=== PATIENT | male | born 1945 | race Caucasian/White ===

== ENCOUNTER 2016-05-22 18:49 | Emergency (ER) | payer MEDICARE, OTHER ==
[~2016-05-22] VITALS: Ht 160 cm; Wt 76.0 kg
[~2016-05-22 18:49] MED LIST: ACET500C5 PO; AMLO5TAB4 PO; ASPI-664 PO; ATEN50TA PO; ATOR20TA38 PO; BEN25 PO; BENA5TAB2 PO; CHOL100062 PO; CLOP75TA27 PO; DOXA2TAB PO; INSU100C SC; MONT10TA21 PO
[2016-05-22 18:54] VITALS: Ht 160 cm; Wt 76.0 kg
[2016-05-22] MEDS ORDERED: SODIUM CHLORIDE 0.9% 1L BAG IV* STA (19:07)
[2016-05-22] MEDS ORDERED: ACETAMINOPHEN 325 MG TAB PO STA (19:07)
[2016-05-22 19:46] LABS: ADD SCAN DIFF NO
[2016-05-22 19:49] LABS: ABNORMAL IP MESSAGE 1; HEMATOCRIT 34.6 % (42.0-52.0); MEAN CORPUSCULAR HEMOGLOBIN 32.9 pg (29.0-33.0); MEAN CORPUSCULAR HGB CONC 31.8 g/dl (32.0-37.0); MEAN CORPUSCULAR VOLUME 103.6 fl (82.0-101.0); MEAN PLATELET VOLUME 10.9 fl (7.4-10.4); PLATELET COUNT 491 10^3/UL (140-415); RED BLOOD COUNT 3.34 10^6/ul (4.70-6.10); RED CELL DISTRIBUTION WIDTH 17.1 % (11.5-14.5); WHITE BLOOD COUNT 6.8 10^3/ul (4.8-10.8)
[2016-05-22 19:51] LABS: ADD UMIC YES; URINE BILIRUBIN (Dip) NEGATIVE (NEGATIVE); URINE BLOOD (Dip) TRACE (NEGATIVE); URINE COLOR LT. YELLOW (YELLOW); URINE KETONES (Dip) NEGATIVE (NEGATIVE); URINE LEUKOCYTE ESTERASE (Dip) NEGATIVE (NEGATIVE); URINE NITRITE (Dip) NEGATIVE (NEGATIVE); URINE TOTAL PROTEIN (Dip) 4+ (NEGATIVE); URINE UROBILINOGEN (Dip) 0.2 E.U./dL (0.1-1.0)
[2016-05-22 19:57] LABS: ALBUMIN 3.6 g/dl (3.3-4.9); CHLORIDE 100 mmol/L (97-110)
[2016-05-22 19:58] LABS: POTASSIUM 4.4 mmol/L (3.5-5.1); SODIUM 135 mmol/L (135-144)
[2016-05-22 20:00] LABS: ALANINE AMINOTRANSFERASE 29 IU/L (13-69); ALBUMIN/GLOBULIN RATIO 0.92; ALKALINE PHOSPHATASE 89 IU/L (42-121); ANION GAP 17 (8-16); ASPARTATE AMINO TRANSFERASE 41 IU/L (15-46); BILIRUBIN,INDIRECT 0.2 mg/dl (0-1.1); BILIRUBIN,TOTAL 0.2 mg/dl (0.2-1.3); BLOOD UREA NITROGEN 28 mg/dl (7-20); CARBON DIOXIDE 22 mmol/L (21-31); CREATININE 2.83 mg/dl (0.61-1.24); GLUCOSE 192 mg/dl (70-220); TOTAL PROTEIN 7.5 g/dl (6.1-8.1)
[2016-05-22 20:01] LABS: CALCIUM 8.6 mg/dl (8.4-10.2); INR 1.09; PROTIME 14.1 Sec (12.2-14.2); PT RATIO 1.1
[2016-05-22 20:02] LABS: PARTIAL THROMBOPLASTIN TIME 42.1 Sec (25.0-35.0)
[2016-05-22 20:08] LABS: BACTERIA,URINE FEW; URINE RBCS 0-2 /HPF (0)
[2016-05-22 20:24] VITALS: TEMP 98.7
[2016-05-22 20:26] LABS: TROPONIN-I < 0.012 ng/ml (0.00-0.12)
[2016-05-22 20:28] LABS: ANISOCYTOSIS 1+; EOSINOPHILS # 0.2 10^3/ul (0.0-0.5); HYPOCHROMASIA 1+; LYMPHOCYTES # 0.4 10^3/ul (0.8-2.9); MONOCYTE # 0.3 10^3/ul (0.3-0.9); NEUTROPHIL # 5.7 10^3/ul (1.6-7.5)
[2016-05-22] MEDS ORDERED: ACET500C5 PO (20:28)
[2016-05-22] MEDS ORDERED: OSLT75C PO (20:28)
[2016-05-22 20:29] LABS: PLATELET ESTIMATE PLT APPEAR INCREASED
[2016-05-22] MEDS ORDERED: OSELTAMIVIR 75 MG CAP PO ONE (20:30)
--- NOTE | 2016-05-22 20:30 | RADRPT ---
PROCEDURE: XR Chest. CLINICAL INDICATION: Chest pain. TECHNIQUE: Single frontal view. COMPARISON: 02/15/2015. FINDINGS: There is a density measuring approximately 2.3 x 2.5 cm in the left upper lobe laterally with adjace nt atelectasis. The lungs are otherwise clear. The heart size is normal. There is no pleural effusion. There is no pneumothorax. IMPRESSION: 1. Density in the left upper lobe laterally. Correlation with CT scan of the chest is advised. 2. Mild left upper lobe atelectasis. 3. Otherwise normal chest x-ray. RPTAT: QQ .Patrice Gil MD, MD Date Time Electronically viewed and signed by .Patrice Gil MD, MD on 05/22/2016 20:30 .R/
--- NOTE | 2016-05-22 20:32 | ERD ---
ER Documentation Chief Complaint Date/Time DATE: 05/22/16 TIME: 20:30 Chief Complaint Flu symptom HPI 71-year-old male presents with fever and body aches for the last 1 day. Denies cough, sore throat, vomiting. He has some mild generalized abdominal pain but body aches as well. He possibly has some dysuria. He has a history of prostate cancer. Denies any neck stiffness or rashes or sick contacts. ROS All systems reviewed and are negative except as per history of present illness. Medications Home Meds Active Scripts Oseltamivir Phosphate* (Tamiflu*) 75 Mg Capsule, 75 MG PO BID for 5 Days, CAP Prov:ALMAZ CUEVA MD 05/22/16 Acetaminophen* (Tylophen*) 500 Mg Capsule, 1 CAP PO Q6H Y for PAIN AND OR ELEVATED TEMP, #20 CAP Prov:ALMAZ CUEVA MD 05/22/16 Acetaminophen* (Tylophen*) 500 Mg Capsule, 1 CAP PO Q6H Y for PAIN AND OR ELEVATED TEMP, #16 CAP Prov:ALMAZ CUEVA MD 06/07/15 Diphenhydramine Hcl* (Benadryl*) 25 Mg Cap, 25 MG PO Q6, #14 CAP Prov:ALMAZ CUEVA MD 06/07/15 Clopidogrel Bisulfate (Clopidogrel) 75 Mg Tab, 75 MG PO DAILY for 30 Days, TAB 3 Refills Prov:ROBERTO THORNE MD 02/16/15 Atorvastatin Calcium* (Atorvastatin Calcium*) 20 Mg Tab, 80 MG PO DAILY@21 for 30 Days, TAB Prov:ROBERTO THORNE MD 02/16/15 Aspirin* (Aspirin* EC) 81 Mg Tablet.dr, 81 MG PO DAILY for 30 Days, 3 Refills Prov:ROBERTO THORNE MD 02/16/15 Reported Medications Cholecalciferol* (Vitamin D3*) 1,000 Unit Tablet, 1000 UNIT PO DAILY, TAB 02/14/15 Insulin Lispro (Humalog) 100 U/Ml Cartridge, 0 SC SLIDING SCALE AC, EA 02/14/15 Amlodipine Besylate* (Norvasc*) 5 Mg Tablet, 5 MG PO DAILY, TAB 02/14/15 Benazepril Hcl* (Benazepril Hcl*) 5 Mg Tablet, 5 MG PO DAILY, TAB 10/05/14 Doxazosin Mesylate* (Doxazosin Mesylate*) 2 Mg Tablet, 2 MG PO HS, TAB HOLD RX PER 10/05/14 Atenolol* (Atenolol*) 50 Mg Tablet, 50 MG PO DAILY 11/30/11 Montelukast Sodium* (Singulair*) 10 Mg Tablet, 10 MG PO DAILY 11/30/11 Allergies Allergies: Coded Allergies: No Known Allergy (Unverified , 02/15/15) PMhx/Soc History of Surgery: Yes (CHOLECYSTECTOMY, VENTRAL HERNIA REPAIR) Anesthesia Reaction: No Hx Neurological Disorder: No Hx Respiratory Disorders: No Hx Cardiac Disorders: Yes (STENT PLACED, HTN) Hx Psychiatric Problems: No Hx Miscellaneous Medical Probl: Yes (PROSTATE CANCER, DM) Hx Alcohol Use: No Hx Substance Use: No Hx Tobacco Use: No Smoking Status: Never smoker Physical Exam Vitals Vital Signs Date Time Temp Pulse Resp B/P Pulse Ox O2 Delivery O2 Flow Rate FiO2 05/22/16 20:24 98.7 88 16 152/73 95 Room Air 05/22/16 18:54 101.7 105 20 170/84 97 Physical Exam Const: [] Alert, no apparent distress. Head: Atraumatic Eyes: Normal Conjunctiva ENT: Normal External Ears, Nose and Mouth. Neck: Full range of motion..~ No meningismus. Resp: Clear to auscultation bilaterally Cardio: Regular rate and rhythm, no murmurs Abd: Soft, non tender, non distended. Normal bowel sounds Skin: No petechiae or rashes Back: No midline or flank tenderness Ext: No cyanosis, or edema Neur: Awake and alert Psych: Normal Mood and Affect Result Diagram: 05/22/16192405/22/161924 Results 24 hrs Laboratory Tests Test 05/22/16 19:25 White Blood Count 6.810^3/ul Red Blood Count 3.3410^6/ul Hemoglobin 11.0g/dl Hematocrit 34.6% Mean Corpuscular Volume 103.6fl Mean Corpuscular Hemoglobin 32.9pg Mean Corpuscular Hemoglobin Concent 31.8g/dl Red Cell Distribution Width 17.1% Platelet Count 45682^3/UL Mean Platelet Volume 10.9fl Neutrophils % 84.0% Band Neutrophils % 2.0% Lymphocytes % 6.0% Monocytes % 5.0% Eosinophils % 3.0% Neutrophils # 5.710^3/ul Lymphocytes # 0.410^3/ul Monocytes # 0.310^3/ul Eosinophils # 0.210^3/ul Platelet Estimate PLT APPEAR INCREASED Large Platelets FEW Giant Platelets FEW Hypochromasia 1+ Anisocytosis 1+ Macrocytosis 1+ Prothrombin Time 14.1Sec Prothrombin Time Ratio 1.1 INR International Normalized Ratio 1.09 Activated Partial Thromboplast Time 42.1Sec Urine Color LT. YELLOW Urine Clarity CLEAR Urine pH 6.0 Urine Specific [place] 1.020 Urine Ketones NEGATIVE Urine Nitrite NEGATIVE Urine Bilirubin NEGATIVE Urine Urobilinogen 0.2 E.U./dL Urine Leukocyte Esterase NEGATIVE Urine Microscopic RBC 0-2/HPF Urine Microscopic WBC 0-2/HPF Urine Epithelial Cells OCCASIONAL Urine Bacteria FEW Urine Hyaline Casts FEW Urine Hemoglobin TRACE Urine Glucose 0.1%% Urine Total Protein 4+ Sodium Level 135mmol/L Potassium Level 4.4mmol/L Chloride Level 100mmol/L Carbon Dioxide Level 22mmol/L Anion Gap 17 Blood Urea Nitrogen 28mg/dl Creatinine 2.83mg/dl Glucose Level 192mg/dl Lactic Acid Level 1.7mmol/L Calcium Level 8.6mg/dl Total Bilirubin 0.2mg/dl Direct Bilirubin 0.00mg/dl Indirect Bilirubin 0.2mg/dl Aspartate Amino Transf (AST/SGOT) 41IU/L Alanine Aminotransferase (ALT/SGPT) 29IU/L Alkaline Phosphatase 89IU/L Troponin I < 0.012ng/ml Total Protein 7.5g/dl Albumin 3.6g/dl Globulin 3.90g/dl Albumin/Globulin Ratio 0.92 Current Medications Medications (Trade) Dose Ordered Sig/Mesfin Route PRN Reason Start Time Stop Time Status Last Admin Dose Admin Sodium Chloride (NS) 2,360 ml BOLUS OVER 2 HOURS STAT IV* 05/22/16 19:07 05/22/16 19:09 DC 05/22/16 19:57 Acetaminophen (Tylenol Tab) 650 mg ONCE STAT PO 05/22/16 19:07 05/22/16 19:09 DC 05/22/16 19:58 Oseltamivir Phosphate (Tamiflu) 75 mg ONCE ONCE PO 05/22/16 20:30 05/22/16 20:31 DC Procedures/MDM CBC shows a white blood cell count of 6. Hemoglobin 11 and platelets 461. CMP shows some renal insufficiency which is similar to previous visits. Patient had tachycardia and fever at triage so 30 cc/kg of normal saline was ordered. Blood cultures pending as well as urine culture pending. Chest X-ray 1V Interpreted by me: Soft Tissue: No acute abnormalities Bones: No acute abnormalities Mediastinum/Cardiac Silhouette/Lungs: [No acute abnormalities]. Impression- normal 1 view chest x-ray Urine shows no leukocytes, nitrites. There is slight glucose and 4+ protein. Patient was given Tylenol for fever and observe for fever and pulse rate improved. Patient has febrile illness with body aches of one days duration, likely viral illness. Patient was given Tamiflu 75 mg by mouth given higher status. Patient shows no signs of serious bacterial infection currently and will treat with Tylenol and Tamiflu at home and observation. Patient should recheck the next day for shortness of breath, vomiting, abdominal pain, new worsening symptoms or primary care doctor this week. The patient was stable with no new complaints during the ER course. Clinically, there is no current evidence to suggest meningitis, sepsis, acute abdomen, pneumonia, acute coronary syndrome, pulmonary embolism, or any other emergent condition appearing to require further evaluation or hospitalization. The patient should certainly return for any new or worsening symptoms per the aftercare instructions. They should otherwise follow-up with her primary care doctor for reevaluation this week. EKG: Rate/Rhythm: [Normal Sinus Rhythm] rate equals 100 QRS, ST, T-waves: [No changes consistent w/ acute ischemia] Impression: [No evidence of ischemia or arrhythmia]. Impression-right bundle branch block slight sinus tachycardia. Departure Diagnosis: Primary Impression: Influenza-like symptoms Condition: Stable Patient Instructions: Influenza (Adult) Additional Instructions: Examines normal hoy. Cheque otro vez con kinney doctor primario en el proximo hernandez or regresa para mas o nueva simptomas. probablamente un virus que dura 2-4 hernandez. cheque otro [place] el proximo syeda para mas simptomas- vomito, dolor, cole, problemas con respirando, o con kinney doctor primario. ALMAZ CUEVA MD May 22, 2016 20:32
[2016-05-22 21:41] VITALS: BP 164/76; PULSE 84; RESP 20
== END 2016-05-22 21:43 | disposition home or self-care (01) ==
LOC: FTE 18:49
DX: R50.9 Fever, unspecified (principal); R10.84 Generalized abdominal pain; I10 Essential (primary) hypertension; E11.9 Type 2 diabetes mellitus without complications; Z79.4 Long term (current) use of insulin; Z79.01 Long term (current) use of anticoagulants; Z85.46 Personal history of malignant neoplasm of prostate; Z79.82 Long term (current) use of aspirin; Z98.61 Coronary angioplasty status
CPT/HCPCS: 36415; 71010; 80053; 81001; 83605; 84484; 85025; 85610; 85730; 87040; 87086; 93005; 99285; J7030; 81003

== ENCOUNTER 2017-01-10 12:30 | Inpatient (IN) | payer MEDICARE, OTHER ==
[~2017-01-10] VITALS: Ht 162.6 cm; Wt 77.6 kg
[~2017-01-10 12:30] MED LIST changes: +OSLT75C PO
[2017-01-10] MEDS ORDERED: CLOP75TA27 PO (12:57)
[2017-01-10] MEDS ORDERED: ATEN50TA PO (12:58)
[2017-01-10] MEDS ORDERED: NEPH PO (12:58)
[2017-01-10] MEDS ORDERED: MULTI PO (12:58)
[2017-01-10] MEDS ORDERED: RANO10002 PO (12:58)
[2017-01-10] MEDS ORDERED: ATOR40TA68 PO (12:58)
[2017-01-10] MEDS ORDERED: LANT3I SC (12:59)
[2017-01-10] MEDS ORDERED: AMLO5TAB4 PO (12:59)
[2017-01-10] MEDS ORDERED: BENA20TA48 PO (12:59)
[2017-01-10] MEDS ORDERED: GLIP5TAB13 PO (13:00)
[2017-01-10 13:03] VITALS: TEMP 101.1
[2017-01-10] MEDS ORDERED: CEFEPIME 2GM/50 ML (PMX) 50 ML IVPB STA (13:23)
[2017-01-10] MEDS ORDERED: SODIUM CHLORIDE 0.9% 1L BAG IV* STA (13:23)
[2017-01-10] MEDS ORDERED: ACETAMINOPHEN 325 MG TAB PO STA (13:23)
[2017-01-10] MEDS ORDERED: VANCOMYCIN 1 GM (PMX) 250 ML IVPB ONE (13:30)
--- NOTE | 2017-01-10 14:27 | RADRPT ---
PROCEDURE: Chest radiograph CLINICAL INDICATION: Possible Sepsis. COMPARISON: Radiograph 02/15/2015. TECHNIQUE: Single frontal chest radiograph. FINDINGS: Linear and curvilinear opacity at the periphery of the left upper lung which may represent pneumonia and/or atelectasis. Linear passing the right mid lung, consistent with atelectasis. The lungs are clear. No pleural effusion or focal parenchymal opacity. Cardiomegaly. No suspicious bone lesion. Mild degenerative endplate spurring throughout the thoracic spine. Possible lucency under the left diaphragm. IMPRESSION: 1. Left upper lobe pneumonia. 2. Atelectasis in the right mid lung. 3. Possible lucency underneath the left diaphragm which could represent free air in the appropriate clinical setting. RPTAT: PP Physician Sayra Date Time Electronically viewed and signed by Physician Sayra on 01/10/2017 14:27 /
[2017-01-10 14:31] LABS: ABNORMAL IP MESSAGE 1; HEMATOCRIT 25.6 % (42.0-52.0); HEMOGLOBIN 8.4 g/dl (14.0-18.0); MEAN CORPUSCULAR HGB CONC 32.8 g/dl (32.0-37.0); MEAN CORPUSCULAR VOLUME 103.6 fl (82.0-101.0); MEAN PLATELET VOLUME 11.4 fl (7.4-10.4); NUCLEATED RED BLOOD CELLS% 0.5 /100WBC (0.0-0.0); PLATELET COUNT 417 10^3/UL (140-415); POSITIVE DIFF @See below; RED BLOOD COUNT 2.47 10^6/ul (4.70-6.10); WHITE BLOOD COUNT 5.9 10^3/ul (4.8-10.8)
[2017-01-10 14:45] LABS: INR 1.17; PROTIME 15.1 Sec (11.9-14.9); PT RATIO 1.2
[2017-01-10 14:46] LABS: PARTIAL THROMBOPLASTIN TIME 49.9 Sec (25.0-35.0)
[2017-01-10 14:49] LABS: ALANINE AMINOTRANSFERASE 26 IU/L (13-69); ALBUMIN 3.5 g/dl (3.3-4.9); ALBUMIN/GLOBULIN RATIO 0.94; ALKALINE PHOSPHATASE 68 IU/L (42-121); ANION GAP 16 (8-16); ASPARTATE AMINO TRANSFERASE 28 IU/L (15-46); BILIRUBIN,INDIRECT 0.2 mg/dl (0-1.1); BILIRUBIN,TOTAL 0.2 mg/dl (0.2-1.3); BLOOD UREA NITROGEN 47 mg/dl (7-20); CALCIUM 7.7 mg/dl (8.4-10.2); CARBON DIOXIDE 21 mmol/L (21-31); CHLORIDE 105 mmol/L (97-110); CREATININE 4.87 mg/dl (0.61-1.24); GLUCOSE 138 mg/dl (70-220); POTASSIUM 4.8 mmol/L (3.5-5.1); SODIUM 137 mmol/L (135-144); TOTAL PROTEIN 7.2 g/dl (6.1-8.1)
[2017-01-10 14:53] LABS: ADD UMIC YES; UR ASCORBIC ACID NEGATIVE (NEGATIVE); UR BILIRUBIN (Dip) NEGATIVE (NEGATIVE); UR BLOOD (Dip) NEGATIVE (NEGATIVE); UR CLARITY CLEAR (CLEAR); UR COLOR STRAW (YELLOW); UR GLUCOSE (Dip) 1+ mg/dL (NEGATIVE); UR KETONES (Dip) NEGATIVE (NEGATIVE); UR LEUKOCYTE ESTERASE (Dip) NEGATIVE Leu/ul (NEGATIVE); UR NITRITE (Dip) NEGATIVE (NEGATIVE); UR RBC 0 /HPF (0-5); UR SPECIFIC GRAVITY (Dip) 1.009 (1.003-1.030); UR TOTAL PROTEIN (Dip) 3+ mg/dl (NEGATIVE); UR UROBILINOGEN (Dip) NEGATIVE (NEGATIVE)
[2017-01-10 15:04] LABS: TROPONIN-I < 0.012 ng/ml (0.00-0.12)
[2017-01-10 15:11] LABS: ANISOCYTOSIS 1+ (0-0); BASOPHILS % (M) 2 % (0-2); EOSINOPHILS % (M) 1 % (0-7); GIANT THROMBO% (M) 1 % (0-0); MONOCYTES % (M) 4 % (0-11); PLATELET ESTIMATE INCREASED; POIKILOCYTOSIS 1+ (0-0); POLYCHROMASIA 2+ (0-0)
--- NOTE | 2017-01-10 16:15 | ERD ---
ER Documentation Chief Complaint Chief Complaint generalized body pain, fever since yesterday HPI This is a 71-year-old male is complaining of day 2 of body aches chills with subjective fevers at home. Says he has a runny nose and slight cough no sore throat he has had one episode of vomiting and one episode of diarrhea today has been nonbilious nonbloody. No abdominal pain no chest pain shortness of breath no rash no stiff neck no photophobia or headache. ROS All systems reviewed and are negative except as per history of present illness. Medications Home Meds Reported Medications Glipizide* (Glipizide*) Unknown Strength Tablet, PO AC BREAKFAST, TAB 01/10/17 Insulin Glargine* (Lantus*) 100 Unit/Ml Soln, 32 UNIT SC QHS, #1 VIAL 01/10/17 Amlodipine Besylate* (Norvasc*) 5 Mg Tablet, 5 MG PO DAILY, TAB 01/10/17 Benazepril Hcl* (Benazepril Hcl*) 20 Mg Tablet, 20 MG PO DAILY, #30 TAB 01/10/17 Atenolol* (Atenolol*) 50 Mg Tablet, 50 MG PO DAILY, #30 TAB 01/10/17 Atorvastatin* (Atorvastatin*) 40 Mg Tablet, 40 MG PO QHS, #30 TAB 01/10/17 Multivitamins* (Theragran*) 1 Tab Tab, 1 TAB PO DAILY, TAB 01/10/17 Multivit/Ca Carb/B Cmplx/Fa* (Paulina-Heber*) 1 Tab Tab, 1 TAB PO DAILY, TAB 01/10/17 Ranolazine* (Ranexa*) 1,000 Mg Tab.sr.12h, 1000 MG PO Q12, TAB 01/10/17 Clopidogrel Bisulfate (Clopidogrel) 75 Mg Tablet, 75 MG PO DAILY, #30 TAB 01/10/17 Discontinued Reported Medications Cholecalciferol* (Vitamin D3*) 1,000 Unit Tablet, 1000 UNIT PO DAILY, TAB 02/14/15 Insulin Lispro (Humalog) 100 U/Ml Cartridge, 0 SC SLIDING SCALE AC, EA 02/14/15 Amlodipine Besylate* (Norvasc*) 5 Mg Tablet, 5 MG PO DAILY, TAB 02/14/15 Benazepril Hcl* (Benazepril Hcl*) 5 Mg Tablet, 5 MG PO DAILY, TAB 10/05/14 Doxazosin Mesylate* (Doxazosin Mesylate*) 2 Mg Tablet, 2 MG PO HS, TAB HOLD RX PER 10/05/14 Atenolol* (Atenolol*) 50 Mg Tablet, 50 MG PO DAILY 11/30/11 Montelukast Sodium* (Singulair*) 10 Mg Tablet, 10 MG PO DAILY 11/30/11 Discontinued Scripts Oseltamivir Phosphate* (Tamiflu*) 75 Mg Capsule, 75 MG PO BID for 5 Days, CAP Prov:ALMAZ CUEVA MD 05/22/16 Acetaminophen* (Tylophen*) 500 Mg Capsule, 1 CAP PO Q6H Y for PAIN AND OR ELEVATED TEMP, #20 CAP Prov:ALMAZ CUEVA MD 05/22/16 Acetaminophen* (Tylophen*) 500 Mg Capsule, 1 CAP PO Q6H Y for PAIN AND OR ELEVATED TEMP, #16 CAP Prov:ALMAZ CUEVA MD 06/07/15 Diphenhydramine Hcl* (Benadryl*) 25 Mg Cap, 25 MG PO Q6, #14 CAP Prov:ALMAZ CUEVA MD 06/07/15 Clopidogrel Bisulfate (Clopidogrel) 75 Mg Tab, 75 MG PO DAILY for 30 Days, TAB 3 Refills Prov:ROBERTO THORNE MD 02/16/15 Atorvastatin Calcium* (Atorvastatin Calcium*) 20 Mg Tab, 80 MG PO DAILY@21 for 30 Days, TAB Prov:ROBERTO THORNE MD 02/16/15 Aspirin* (Aspirin* EC) 81 Mg Tablet.dr, 81 MG PO DAILY for 30 Days, 3 Refills Prov:ROBERTO THORNE MD 02/16/15 Allergies Allergies: Coded Allergies: No Known Allergy (Unverified , 01/10/17) PMhx/Soc History of Surgery: Yes (CHOLECYSTECTOMY, VENTRAL HERNIA REPAIR) Anesthesia Reaction: No Hx Neurological Disorder: No Hx Respiratory Disorders: No Hx Cardiac Disorders: Yes (STENT PLACED, HTN) Hx Psychiatric Problems: No Hx Miscellaneous Medical Probl: Yes (PROSTATE CANCER, DM) Hx Alcohol Use: No Hx Substance Use: No Hx Tobacco Use: No Smoking Status: Never smoker FmHx Family History: No coronary disease Physical Exam Vitals Vital Signs Date Time Temp Pulse Resp B/P Pulse Ox O2 Delivery O2 Flow Rate FiO2 01/10/17 14:38 78 18 136/84 98 Nasal Cannula 2.0 01/10/17 13:47 94 18 143/71 98 Nasal Cannula 2.0 01/10/17 13:40 Nasal Cannula 2 01/10/17 13:03 101.1 93 18 143/71 95 Room Air 2.0 01/10/17 12:31 100.7 97 24 164/70 95 Physical Exam Const: Well-developed, well-nourished, slightly ill-appearing Head: Atraumatic, normocephalic Eyes: Normal Conjunctiva, PERRLA, EOMI, normal sclera, no nystagmus ENT: Normal External Ears, Nose and Mouth, moist mucus membranes. Neck: Full range of motion. No meningismus, no lymphadenopathy. Resp: Clear to auscultation bilaterally, no wheezing, rhonchi, rales Cardio: Regular rate and rhythm, no murmurs, S1 S2 present Abd: Soft, non tender x 4, non distended. Normal bowel sounds, no guarding or rebound, no pulsitile abdominal masses or bruits Skin: No petechiae or rashes, no ecchymosis , no maculopapular rash Back: No midline or flank tenderness Ext: No cyanosis, or edema, FROM x 4, normal inspection, neurovascularly intact x 4 Neur: Awake and alert, STR 5/5 x 4, sensation intact x 4, no focal findings, cerebellum intact Psych: Normal Mood and Affect Result Diagram: 01/10/17 1348 01/10/17 1348 Results 24 hrs Laboratory Tests Test 01/10/17 13:48 01/10/17 14:00 01/10/17 14:10 White Blood Count 5.910^3/ul Red Blood Count 2.4710^6/ul Hemoglobin 8.4g/dl Hematocrit 25.6% Mean Corpuscular Volume 103.6fl Mean Corpuscular Hemoglobin 34.0pg Mean Corpuscular Hemoglobin Concent 32.8g/dl Red Cell Distribution Width 17.0% Platelet Count 64329^3/UL Mean Platelet Volume 11.4fl Neutrophils % % Segmented Neutrophils % (Manual) 79% Band Neutrophils % (Manual) 5% Lymphocytes % % Lymphocytes % (Manual) 7% Monocytes % % Monocytes % (Manual) 4% Eosinophils % % Eosinophils % (Manual) 1% Basophils % % Basophils % (Manual) 2% Blast Cells % (Manual) 2.0% Nucleated Red Blood Cells % 0.5/100WBC Neutrophils # 10^3/ul Neutrophils # (Manual) 4.710^3/ul Band Neutrophils # 0.210^3/ul Absolute Lymphocytes (Manual) 0.410^3/ul Lymphocytes # 10^3/ul Monocytes # 10^3/ul Absolute Monocytes (Manual) 0.210^3/ul Eosinophils # 10^3/ul Basophils # 10^3/ul Basophils # (Manual) 0.110^3/ul Nucleated Red Blood Cells # 10^3/ul Platelet Estimate INCREASED Giant Platelets 1% Polychromasia 2+ Poikilocytosis 1+ Anisocytosis 1+ Prothrombin Time 15.1Sec Prothrombin Time Ratio 1.2 INR International Normalized Ratio 1.17 Activated Partial Thromboplast Time 49.9Sec Sodium Level 137mmol/L Potassium Level 4.8mmol/L Chloride Level 105mmol/L Carbon Dioxide Level 21mmol/L Anion Gap 16 Blood Urea Nitrogen 47mg/dl Creatinine 4.87mg/dl Glucose Level 138mg/dl Calcium Level 7.7mg/dl Total Bilirubin 0.2mg/dl Direct Bilirubin 0.00mg/dl Indirect Bilirubin 0.2mg/dl Aspartate Amino Transf (AST/SGOT) 28IU/L Alanine Aminotransferase (ALT/SGPT) 26IU/L Alkaline Phosphatase 68IU/L Troponin I < 0.012ng/ml Total Protein 7.2g/dl Albumin 3.5g/dl Globulin 3.70g/dl Albumin/Globulin Ratio 0.94 Lactic Acid Level 1.1mmol/L Urine Color STRAW Urine Clarity CLEAR Urine pH 7.0 Urine Specific [place] 1.009 Urine Ketones NEGATIVEmg/dL Urine Nitrite NEGATIVEmg/dL Urine Bilirubin NEGATIVEmg/dL Urine Urobilinogen NEGATIVEmg/dL Urine Leukocyte Esterase NEGATIVELeu/ul Urine Microscopic RBC 0/HPF Urine Microscopic WBC 0/HPF Urine Hemoglobin NEGATIVEmg/dL Urine Glucose 1+mg/dL Urine Total Protein 3+mg/dl Current Medications Medications (Trade) Dose Ordered Sig/Mesfin Route PRN Reason Start Time Stop Time Status Last Admin Dose Admin Sodium Chloride (NS) 2,240 ml BOLUS OVER 2 HOURS STAT IV* 01/10/17 13:23 01/10/17 13:29 DC 01/10/17 14:06 Acetaminophen 650 mg 650 mg ONCE STAT PO 01/10/17 13:23 01/10/17 13:29 DC 01/10/17 14:06 Cefepime HCl 50 ml @ 100 mls/hr ONCE STAT IVPB 01/10/17 13:23 01/10/17 13:52 DC 01/10/17 14:06 Vancomycin HCl (Vancocin) 250 ml @ 125 mls/hr ONCE ONCE IVPB 01/10/17 13:30 01/10/17 15:29 DC 01/10/17 14:49 Procedures/MDM PROCEDURE: Chest radiograph CLINICAL INDICATION: Possible Sepsis. COMPARISON: Radiograph 02/15/2015. TECHNIQUE: Single frontal chest radiograph. FINDINGS: Linear and curvilinear opacity at the periphery of the left upper lung which may represent pneumonia and/or atelectasis. Linear passing the right mid lung, consistent with atelectasis. The lungs are clear. No pleural effusion or focal parenchymal opacity. Cardiomegaly. No suspicious bone lesion. Mild degenerative endplate spurring throughout the thoracic spine. Possible lucency under the left diaphragm. IMPRESSION: 1. Left upper lobe pneumonia. 2. Atelectasis in the right mid lung. 3. Possible lucency underneath the left diaphragm which could represent free air in the appropriate clinical setting. RPTAT: PP Physician Sayra Date Time Electronically viewed and signed by Physician Sayra on 01/10/2017 14: 27 LG/ CC: KAMLESH RODRIGUEZ DO Patient's lactate is 1.1. He is not septic. Patient received fluid resuscitation with IV antibiotics cefepime and vancomycin. Patient has left upper lobe pneumonia will admit for IV fluids and antibiotics. Patient's creatinine is elevated at 4.83 baseline is 2.8. Patient also has a bandemia. EKG: Rate/Rhythm: Normal sinus rhythm with a right bundle branch block QRS, ST, QT: NORMAL [place], wide QRS, QT] Impression: Abnormal EKG Departure Diagnosis: Primary Impression: Left upper lobe pneumonia Pneumonia type: due to unspecified organism Qualified Code: J18.1 - Pneumonia of left upper lobe due to infectious organism Condition: Stable KAMLESH RODRIGUEZ DO Jan 10, 2017 16:15
[2017-01-10] MEDS ORDERED: SOD CHLORIDE 0.9% 1,000 ML IV SCH (16:16)
[2017-01-10] MEDS ORDERED: ONDANSETRON 4 MG INJ IV PRN ×2 (16:30→17:00)
[2017-01-10] MEDS ORDERED: ACETAMINOPHEN 325 MG TAB PO PRN ×2 (16:30→17:00)
[2017-01-10] MEDS ORDERED: NACL 0.9% 3 ML SYG IV SCH (17:00)
--- NOTE | 2017-01-10 17:07 | HP ---
Date/Time of Note Date/Time of Note DATE: 01/10/17 TIME: 17:03 Assessment/Plan VTE Prophylaxis VTE Prophylaxis Intervention: SCD's Assessment/Plan Assessment/Plan 1. Left upper lobe pneumonia - patient experiencing generalized body aches and fevers - start on IV antibiotics and if remains stable in the next 48 hours will deescalate and switch to PO - in no acute respiratory distress - PRN nebs 2. KARLOS on CKD - patient has known CKD but baseline unknown - Will give IVF - If worsens, will consult nephrology, but emphasized following up after discharge with maple products maker 3. Anemia, most likely secondary to CKD and chronic disease - will check iron studies 4. Diabetes Mellitus - A1c ordered - insulin home dose continued - ISS and accuchecks 5. hypocalcemia - on replacement 6. urinary symptoms - patient UA negative 7. Code status - Full code 8. GI ppx - PPI 9. DVT ppx - SCD 10. Diet - carb control 11. Disposition - Admit to med/surg HPI/ROS Admit Date/Time Admit Date/Time 01/10/17 Hx of Present Illness 71 yo M with PMH CKD, CAD s/p stent 2016, HTN, DM, HLD, and history of prostate CA presented to ED complaining of generalized body aches, fevers, chills, nausea , vomiting, diarrhea, and cough with productive sputum for the past 2 days. Daughter at bedside and history obtained from daughter and patient. Patient states he feels better since admission but still experiencing cough with sputum that is [place] in color. Patient states he has had vomiting that started 2 days ago after eating and occurred multiple times throughout the day. Patient states he had one episode of diarrhea with abdominal discomfort that has since resolved. Patient follows with Dr. Drake and unsure who his maple products maker is. Denies any chest pain, shortness of breath, wheezing, nausea, vomiting, palpations, or constipation. ROS All 12 systems reviewed and pertinent positives as per HPI. All others negative. Constitutional: chills, fatigue, febrile, nausea, No diaphoresis Eyes: no complaints ENT: No congestion Respiratory: cough, sputum, No shortness of breath, No wheezing Cardiovascular: No chest pain, No palpitations Gastrointestinal: diarrhea, pain, No constipation, No vomiting Genitourinary: other (straining to urinate with discomfort) Musculoskeletal: other (generalized muscle aches) Skin: No erythema, No rash Neurologic: no complaints Endocrine: no complaints Lymphatic: no complaints Psychological: no complaints Immunologic: no complaints PMH/Family/Social Past Medical History Medical History: coronary artery disease, diabetes, hypertension, other ( prostate cancer) Past Surgical History Past Surgical Hx: other (stent placement 2016) Family History Significant Family History: no pertinent family hx Social History Alcohol Use: none Smoking Status: Never smoker Drug Use: none Exam/Review of Systems Vital Signs Vitals Vital Signs Date Time Temp Pulse Resp B/P Pulse Ox O2 Delivery O2 Flow Rate FiO2 01/10/17 16:51 95 18 164/73 98 Nasal Cannula 01/10/17 14:38 2.0 01/10/17 13:03 101.1 Exam Constitutional: alert, oriented, well developed, No distress Psych: nl mood/affect Head: atraumatic, normocephalic Eyes: EOMI, PERRL, nl sclera ENMT: mucosa pink and moist Neck: non-tender, supple Respiratory: clear to auscultation, crackles/rales, diminished breath sounds, No wheezing Cardiovascular: regular rate and rhythm, No irregular rhythm, No murmurs/extra sounds Gastrointestinal: non-tender, soft, No distended, No rebound or guarding Genitourinary - Male: No CVA tenderness Musculoskeletal: nl extremities to inspection, nl gait and stance Extremities: normal pulses, No cyanosis, No edema Neurological: PICKER/PULLER II-XII intact, nl mental status, nl speech Skin: nl turgor Lymph: nl lymph nodes Labs Result Diagram: 01/10/17 1348 01/10/17 1348 Medications Medications Home medications reviewed Current Medications Sodium Chloride (NS) 1,000 ml @ 80 mls/hr [id number] IV ; Start 01/10/17 at 16:16 ; Stop 01/11/17 at 04:45 Amlodipine Besylate (Norvasc) 5 mg DAILY PO ; Start 01/11/17 at 09:00; Status UNV Atenolol (Tenormin) 50 mg DAILY PO ; Start 01/11/17 at 09:00; Status UNV Atorvastatin Calcium (Lipitor) 40 mg QHS PO ; Start 01/10/17 at 21:00; Status UNV Benazepril HCl (Lotensin) 20 mg DAILY PO ; Start 12/4/17 at 09:00; Status UNV Clopidogrel Bisulfate (plaVIX) 75 mg DAILY PO ; Start 01/11/17 at 09:00; Status UNV Insulin Glargine (Lantus) 32 unit QHS SC ; Start 01/10/17 at 21:00; Status UNV Multivit/Ca Carb/ B Cmplx/FA/Prenat (Paulina-Heber) 1 tab DAILY PO ; Start 01/11/17 at 09:00; Status UNV Ranolazine (Ranexa) 1,000 mg Q12 PO ; Start 01/10/17 at 21:00; Status UNV Procedures Procedures PROCEDURE: Chest radiograph CLINICAL INDICATION: Possible Sepsis. COMPARISON: Radiograph 02/15/2015. TECHNIQUE: Single frontal chest radiograph. FINDINGS: Linear and curvilinear opacity at the periphery of the left upper lung which may represent pneumonia and/or atelectasis. Linear passing the right mid lung, consistent with atelectasis. The lungs are clear. No pleural effusion or focal parenchymal opacity. Cardiomegaly. No suspicious bone lesion. Mild degenerative endplate spurring throughout the thoracic spine. Possible lucency under the left diaphragm. IMPRESSION: 1. Left upper lobe pneumonia. 2. Atelectasis in the right mid lung. 3. Possible lucency underneath the left diaphragm which could represent free air in the appropriate clinical setting. TOMMY ROSENBERG MD Jan 10, 2017 17:07
[2017-01-10] MEDS ORDERED: ALBUTEROL 0.083% (NEB) 2.5 MG/3 ML AMP HHN PRN (17:30)
[2017-01-10] MEDS ORDERED: GLUCOSE GEL 15 GRAM TUBE PO PRN ×2 (17:30)
[2017-01-10] MEDS ORDERED: GLUCOSE GEL 15 GRAM TUBE BUCCAL PRN (17:30)
[2017-01-10] MEDS ORDERED: DEXTROSE 50% 50 ML SYRINGE IV PRN ×2 (17:30)
[2017-01-10] MEDS ORDERED: GLUCAGON 1 MG INJ IM PRN (17:30)
[2017-01-10 17:43] VITALS: BP 135/80; RESP 18
[2017-01-10 17:57] VITALS: Ht 162.6 cm; Wt 77.6 kg
[2017-01-10] MEDS: INSULIN ASPART [NOVOLOG] 3 ML PEN SC SCH ×2 (18:00→21:00)
[2017-01-10 18:03] LABS: IRON 14 ug/dl (35-150)
[2017-01-10 18:12] LABS: TOTAL IRON BINDING CAPACITY 204 ug/dl (241-421)
[2017-01-10] MEDS: SOD CHLORIDE 0.9% 1,000 ML IV SCH (18:14)
[2017-01-10] MEDS: CEFTRIAXONE 1 GM/50 ML (PMX) 50 ML IVPB SCH (18:19)
[2017-01-10] MEDS: AZITHROMYCIN 500MG/NS (PMX) 250 ML IVPB SCH (20:05)
[2017-01-10] MEDS: ATORVASTATIN 40 MG TAB PO SCH (20:56)
[2017-01-10] MEDS: RANOLAZINE (SR) 500 MG TAB PO SCH (20:56)
[2017-01-10 21:00] VITALS: BP 172/78; PULSE 111; RESP 20
[2017-01-10 22:30] VITALS: BP 151/73; PULSE 101
[2017-01-10] MEDS: INSULIN GLARGINE [LANtus] 3 ML PEN SC SCH (23:47)
[2017-01-11] MEDS: ACCU-CHEK XX SCH (02:00)
[2017-01-11 02:20] VITALS: BP 134/59; RESP 20
[2017-01-11] MEDS: SOD CHLORIDE 0.9% 1,000 ML IV SCH ×3 (02:59→20:35)
[2017-01-11] MEDS: PANTOPRAZOLE (EC) 40 MG TAB PO SCH (05:38)
[2017-01-11 06:12] LABS: ABNORMAL IP MESSAGE 1; HEMATOCRIT 21.1 % (42.0-52.0); MEAN CORPUSCULAR HEMOGLOBIN 33.5 pg (29.0-33.0); MEAN CORPUSCULAR HGB CONC 32.2 g/dl (32.0-37.0); MEAN CORPUSCULAR VOLUME 103.9 fl (82.0-101.0); MEAN PLATELET VOLUME 10.8 fl (7.4-10.4); PLATELET COUNT 297 10^3/UL (140-415); POSITIVE DIFF @See below; RED BLOOD COUNT 2.03 10^6/ul (4.70-6.10); RED CELL DISTRIBUTION WIDTH 17.1 % (11.5-14.5); WHITE BLOOD COUNT 4.4 10^3/ul (4.8-10.8)
[2017-01-11 06:39] LABS: ALBUMIN 2.7 g/dl (3.3-4.9); CALCIUM 6.7 mg/dl (8.4-10.2); CREATININE 4.43 mg/dl (0.61-1.24); MAGNESIUM 1.5 mg/dl (1.7-2.5); PHOSPHORUS 4.9 mg/dl (2.5-4.9); POTASSIUM 4.4 mmol/L (3.5-5.1)
[2017-01-11 06:43] LABS: HEMOGLOBIN 6.8 g/dl (14.0-18.0)
[2017-01-11 07:54] LABS: ABNORMAL IP MESSAGE 1; BASOPHILS % 0.2 % (0.0-2.0); EOSINOPHILS # 0.1 10^3/ul (0.0-0.5); EOSINOPHILS % 1.3 % (0.0-7.0); HEMATOCRIT 21.7 % (42.0-52.0); LYMPHOCYTES # 0.4 10^3/ul (0.8-2.9); MEAN CORPUSCULAR HEMOGLOBIN 33.5 pg (29.0-33.0); MEAN CORPUSCULAR HGB CONC 31.8 g/dl (32.0-37.0); MEAN CORPUSCULAR VOLUME 105.3 fl (82.0-101.0); MEAN PLATELET VOLUME 10.7 fl (7.4-10.4); MONOCYTE # 0.5 10^3/ul (0.3-0.9); MONOCYTES % 11.4 % (0.0-11.0); NEUTROPHIL # 3.1 10^3/ul (1.6-7.5); NEUTROPHILS % 69.8 % (39.0-77.0); NUCLEATED RED BLOOD CELLS% 0.4 /100WBC (0.0-0.0); PLATELET COUNT 310 10^3/UL (140-415); POSITIVE DIFF @See below; RED BLOOD COUNT 2.06 10^6/ul (4.70-6.10); RED CELL DISTRIBUTION WIDTH 17.3 % (11.5-14.5); WHITE BLOOD COUNT 4.5 10^3/ul (4.8-10.8)
[2017-01-11 07:59] VITALS: BP 151/67; RESP 19
[2017-01-11 07:59] LABS: HEMOGLOBIN 6.9 g/dl (14.0-18.0)
[2017-01-11] MEDS: INSULIN ASPART [NOVOLOG] 3 ML PEN SC SCH ×4 (08:15→21:00)
[2017-01-11] MEDS: RANOLAZINE (SR) 500 MG TAB PO SCH ×2 (08:32→21:00)
[2017-01-11] MEDS: CLOPIDOGREL 75 MG TAB PO SCH (08:33)
[2017-01-11] MEDS: MULTIVIT/CA CARB/B CMPLX/FA TAB PO SCH (08:33)
[2017-01-11] MEDS: ATENOLOL 50 MG TAB PO SCH (08:34)
[2017-01-11] MEDS: AMLODIPINE 5 MG TAB PO SCH (08:35)
[2017-01-11] MEDS ORDERED: BENAZEPRIL 20 MG TAB PO SCH (09:00)
[2017-01-11] MEDS ORDERED: INFLUENZA VIRUS VACCINE 0.5 ML (DISPENSING) IM* ONE (09:00)
[2017-01-11 09:35] LABS: ANISOCYTOSIS 1+ (0-0); BASOPHILS % (M) 1 % (0-2); GIANT THROMBO% (M) 1 % (0-0); MONOCYTES % (M) 4 % (0-11); MYELOCYTES % (M) 1 % (0-0); PLATELET ESTIMATE NORMAL; POIKILOCYTOSIS 1+ (0-0); POLYCHROMASIA 3+ (0-0)
[2017-01-11] MEDS ORDERED: hydrALAzine 20 MG INJ IV PRN (10:00)
[2017-01-11] MEDS ORDERED: BARIUM SULF 2% 450 ML BTL (BERRY SMOOTHIE) PO ONE (10:00)
[2017-01-11 11:22] LABS: IRON < 10 ug/dl (35-150)
[2017-01-11 11:29] LABS: TOTAL IRON BINDING CAPACITY 172 ug/dl (241-421)
[2017-01-11] MEDS: ASPIRIN 81 MG TAB PO SCH (11:42)
--- NOTE | 2017-01-11 12:19 | RADRPT ---
PROCEDURE: CT Abdomen and Pelvis without contrast. CLINICAL INDICATION: Abdominal pain ; free air TECHNIQUE: CT scan of the abdomen and pelvis was performed on a multidetector high-resolution CT s canner without intravenous contrast. Coronal and sagittal reformatted images were obtained from the axial source images. Images were reviewed on a high-resolution PACS workstation. The total exam CTD I equals 11mGy and the total exam DLP equals 666mGy-cm. One or more of the following dose reduction techniques were used: Automated exposure control, Adjustment of the mA and/or kV according to patien t size, and/or use of iterative reconstruction technique. DICOM images are available. COMPARISON: Correlation chest x-ray yesterday FINDINGS: Evaluation of the solid organs is limited given the lack of intravenous contrast administration. Bibasilar atelectasis. Left lower lobe calcified granuloma. Small right greater than left pleural ef fusion. The liver, pancreas, spleen, and adrenals are grossly unremarkable. Status post cholecystectomy. No renal or ureteral stone. Distended urinary bladder nearly to the level of the umbilicus with mode rate bilateral hydronephrosis and hydroureter. Bilateral renal cystic lesions. Mildly prominent pros ruiz gland. No bowel obstruction. Normal-caliber appendix. Colonic diverticulosis without evidence of acute di verticulitis. The No significant retroperitoneal lymphadenopathy, ascites or evidence of pneumoperitoneum. Aortoiliac atherosclerosis. IMPRESSION: Distended urinary bladder with moderate bilateral hydronephrosis and hydroureter. Mildly prominent prostate gland. The findings may be due to urinary retention or bladder outlet obstruction. Recommen d clinical correlation. No renal or ureteral stone. No evidence of bowel obstruction, appendicitis, or colonic diverticulitis. No evidence of pneumoperitoneum. Status post cholecystectomy. RPTAT: AA .Nathaniel Garrison MD, Date Time Electronically viewed and signed by .Nathaniel Garrison MD, MD on 01/11/2017 12:19 .T/
[2017-01-11 14:09] VITALS: BP 132/68; PULSE 82
[2017-01-11] MEDS: ALBUTEROL/IPRATROPIUM (NEB) 3 ML AMP HHN SCH ×2 (14:30→19:55)
[2017-01-11] MEDS ORDERED: MAGNESIUM SULFATE 1 GM/D5W 100 ML IVPB ONE ×2 (14:30→17:00)
--- NOTE | 2017-01-11 14:39 | PN ---
Date/Time of Note Date/Time of Note DATE: 01/11/17 TIME: 14:22 Assessment/Plan VTE Prophylaxis VTE Prophylaxis Intervention: ambulation, SCD's Lines/Catheters IV Catheter Type (from Nrsg): Peripheral IV Assessment/Plan Chief Complaint/Hosp Course s: 12.4 patient has minimal sob o: Physical exam General: Patient is laying in bed and answers questions appropriately Mentation: Patient is alert and oriented 4, Head: Normocephalic atraumatic Eyes: EOMI, pupils reactive to light Neck: Supple, nontender, midline Respiratory: coarse to auscultation bilaterally Cardiovascular: regular rate, no obvious murmurs Gastrointestinal: non-tender to palpation, bowel sounds heard. Neurological: Moves all extremities spontaneously Skin: No new skin lesions Assessment/Plan Left upper lobe pneumonia - patient experiencing generalized body aches and fevers - start on IV antibiotics and if remains stable in the next 48 hours will deescalate and switch to PO - in no acute respiratory distress -CT not showing signs of pneumonia, will continue abx for now as patient is still febrile - PRN nebs KARLOS on CKD - patient has known CKD but baseline unknown - CT showing hydronephrosis, contacted Dr. Lim, urology - KARLOS on CKD, contacted Dr. Benitez, nephrology Anemia, most likely secondary to CKD and chronic disease - will check iron studies, appears low - will start iron with vit c -fobt negative Diabetes Mellitus - A1c ordered - insulin home dose continued - ISS and accuchecks hypocalcemia - on replacement as needed CAD -patient was not on aspirin, granted patient had recent stent, will restart asa and plavix Problems: Exam/Review of Systems Vital Signs Vitals Vital Signs Date Time Temp Pulse Resp B/P Pulse Ox O2 Delivery O2 Flow Rate FiO2 01/11/17 14:09 98.2 82 132/68 01/11/17 07:59 19 99 01/10/17 21:00 Room Air 01/10/17 14:38 2.0 Intake and Output 01/10/17 01/10/17 01/11/17 15:00 23:00 07:00 Intake Total 300 ml 1500 ml Output Total 800 ml Balance 300 ml 700 ml Results Result Diagram: 01/11/17 0719 01/11/17 0537 Results 24 hrs Laboratory Tests Test 01/10/17 16:55 01/10/17 18:02 01/10/17 18:22 01/10/17 22:44 Hemoglobin A1c 5.9 Lactic Acid Level 1.1 1.4 Iron Level 14 L Total Iron Binding Capacity 204 L Percent Iron Saturation 7 L Bedside Glucose 137 153 Test 01/11/17 05:36 01/11/17 05:37 01/11/17 07:19 01/11/17 08:18 Phosphorus Level 5.0 H 4.9 Iron Level < 10 L Total Iron Binding Capacity 172 L Percent Iron Saturation Ferritin 478.0 H White Blood Count 4.4 #L 4.5 L Red Blood Count 2.03 L 2.06 L Hemoglobin 6.8 *L 6.9 *L Hematocrit 21.1 L 21.7 L Mean Corpuscular Volume 103.9 H 105.3 H Mean Corpuscular Hemoglobin 33.5 H 33.5 H Mean Corpuscular Hemoglobin Concent 32.2 31.8 L Red Cell Distribution Width 17.1 H 17.3 H Platelet Count 297 # 310 Mean Platelet Volume 10.8 H 10.7 H Neutrophils % 69.8 Segmented Neutrophils % (Manual) 75 Band Neutrophils % (Manual) 14 H Lymphocytes % 9.0 L Lymphocytes % (Manual) 5 L Monocytes % 11.4 H Monocytes % (Manual) 4 Eosinophils % 1.3 Basophils % 0.2 Basophils % (Manual) 1 Myelocytes % (Manual) 1 H Nucleated Red Blood Cells % 0.0 0.4 H Neutrophils # 3.1 Neutrophils # (Manual) 3.3 Band Neutrophils # 0.6 Absolute Lymphocytes (Manual) 0.2 L Lymphocytes # 0.4 L Monocytes # 0.5 Absolute Monocytes (Manual) 0.1 L Eosinophils # 0.1 Basophils # 0.0 Basophils # (Manual) 0.0 Myelocytes # 0.0 Nucleated Red Blood Cells # 0.0 Platelet Estimate NORMAL Giant Platelets 1 H Polychromasia 3+ Poikilocytosis 1+ Anisocytosis 1+ Macrocytosis 1+ Sodium Level 140 Potassium Level 4.4 Chloride Level 113 H Carbon Dioxide Level 17 L Anion Gap 14 Blood Urea Nitrogen 39 H Creatinine 4.43 H Glucose Level 65 #L Calcium Level 6.7 L Magnesium Level 1.5 L Albumin 2.7 L Bedside Glucose 68 L Test 01/11/17 08:41 01/11/17 08:52 01/11/17 11:05 01/11/17 11:40 Bedside Glucose 86 120 Urine Random Creatinine 34.32 Urine Random Sodium 104 H Stool Occult Blood NEGATIVE Test 01/11/17 12:14 Bedside Glucose 87 Medications Medications Current Medications Amlodipine Besylate (Norvasc) 5 mg DAILY PO Last administered on 01/11/17 08: 35; Admin Dose 5 MG; Start 01/11/17 at 09:00 Atenolol (Tenormin) 50 mg DAILY PO Last administered on 01/11/17 08:34; Admin Dose 50 MG; Start 01/11/17 at 09:00 Atorvastatin Calcium (Lipitor) 40 mg QHS PO Last administered on 01/10/17 20: 56; Admin Dose 40 MG; Start 01/10/17 at 21:00 Benazepril HCl (Lotensin) 20 mg DAILY PO Last administered on 01/11/17 08:34; Admin Dose 20 MG; Start 01/11/17 at 09:00; Status Future Hold Clopidogrel Bisulfate (plaVIX) 75 mg DAILY PO Last administered on 01/11/17 08 :33; Admin Dose 75 MG; Start 01/11/17 at 09:00 Insulin Glargine (Lantus) 32 unit QHS SC Last administered on 01/10/17 23:47; Admin Dose 32 UNIT; Start 01/10/17 at 21:00 Multivit/Ca Carb/ B Cmplx/FA/Prenat (Paulina-Heber) 1 tab DAILY PO Last administered on 01/11/17 08:33; Admin Dose 1 TAB; Start 01/11/17 at 09:00 Ranolazine 1000 mg 1,000 mg Q12 PO Last administered on 01/11/17 08:32; Admin Dose 1,000 MG; Start 01/10/17 at 21:00 Sodium Chloride (NS) 1,000 ml @ 50 mls/hr Q20H IV Last administered on 05:40; Admin Dose 100 MLS/HR; Start 01/10/17 at 16:59; Stop 01/12/17 at 17: 00 Ondansetron HCl (Zofran Inj) 4 mg Q6H PRN IV NAUSEA AND/OR VOMITING; Start 01/10/17 at 17:00 Acetaminophen (Tylenol Tab) 650 mg Q6H PRN PO PAIN LEVEL 1-3 OR FEVER Last administered on 01/11/17 02:42; Admin Dose 650 MG; Start 01/10/17 at 17:00 Pantoprazole 40 mg 40 mg DAILY@06 PO Last administered on 01/11/17 05:38; Admin Dose 40 MG; Start 01/11/17 at 06:00 Ceftriaxone Sodium 50 ml @ 100 mls/hr Q24H IVPB Last administered on 18:19; Admin Dose 100 MLS/HR; Start 01/10/17 at 17:00 Azithromycin (Zithromax 500mg/ NS (Pmx)) 250 ml @ 250 mls/hr Q24H IVPB Last administered on 01/10/17 20:05; Admin Dose 250 MLS/HR; Start 01/10/17 at 17:00 Miscellaneous Information 1 ea NOTE XX ; Start 01/10/17 at 17:30 Glucose (Glutose) 15 gm Q15M PRN PO DECREASED GLUCOSE; Start 01/10/17 at 17:30 Glucose (Glutose) 22.5 gm Q15M PRN PO DECREASED GLUCOSE; Start 01/10/17 at 17: 30 Dextrose (D50w Syringe) 25 ml Q15M PRN IV DECREASED GLUCOSE; Start 01/10/17 at 17:30 Dextrose (D50w Syringe) 50 ml Q15M PRN IV DECREASED GLUCOSE; Start 01/10/17 at 17:30 Glucagon (Glucagen) 1 mg Q15M PRN IM DECREASED GLUCOSE; Start 01/10/17 at 17:30 Glucose (Glutose) 15 gm Q15M PRN BUCCAL DECREASED GLUCOSE; Start 01/10/17 at 17 :30 Diagnostic Test (Pha) (Accu-Chek) 1 ea 02 XX ; Start 01/11/17 at 02:00 Aspirin (Aspirin) 81 mg DAILY PO Last administered on 01/11/17 11:42; Admin Dose 81 MG; Start 01/11/17 at 10:00 Hydralazine HCl (Apresoline) 10 mg Q4H PRN IV sbp>160; Start 01/11/17 at 10:00 BART WILSON Jan 11, 2017 14:39
[2017-01-11 14:50] VITALS: BP 133/66; PULSE 80; RESP 18
[2017-01-11 15:05] VITALS: BP 131/69; PULSE 81; RESP 18
[2017-01-11] MEDS: CEFTRIAXONE 1 GM/50 ML (PMX) 50 ML IVPB SCH (17:36)
[2017-01-11] MEDS: AZITHROMYCIN 500MG/NS (PMX) 250 ML IVPB SCH (18:09)
--- NOTE | 2017-01-11 18:20 | CONS ---
Date/Time of Note Date/Time of Note DATE: 01/11/17 TIME: 18:17 Assessment/Plan Assessment/Plan Additional Assessment/Plan 71 yo male with 1) KARLOS Vs KARLOS on CKD Non Oliguric, CT scan shows Hydronephrosis, S/p Romero catheter 2) Anemia, S/p PRBC, BP stable, Iron Deficiency 3) Metabolic acidosis in the setting KARLOS 4) LLL PNA 5) Sepsis 6) DM with Likely DM CKD Consultation Date/Type/Reason Admit Date/Time Jan 10, 2017 at 16:17 Type of Consultation: Nephrology Reason for Consultation KARLOS, CKD Referring Provider: BART WILSON Exam/Review of Systems Vital Signs Vitals Vital Signs Date Time Temp Pulse Resp B/P Pulse Ox O2 Delivery O2 Flow Rate FiO2 01/11/17 17:48 81 20 93 01/11/17 15:05 97.8 131/69 Room Air 01/10/17 14:38 2.0 Intake and Output 01/10/17 01/10/17 01/11/17 14:59 22:59 06:59 Intake Total 300 ml 1500 ml Output Total 800 ml Balance 300 ml 700 ml Results Result Diagram: 01/11/17 0719 01/11/17 0537 Results 24 hrs Laboratory Tests Test 01/10/17 18:22 01/10/17 22:44 01/11/17 05:36 01/11/17 05:37 Bedside Glucose 137 153 Phosphorus Level 5.0 H 4.9 Iron Level < 10 L Total Iron Binding Capacity 172 L Percent Iron Saturation Ferritin 478.0 H White Blood Count 4.4 #L Red Blood Count 2.03 L Hemoglobin 6.8 *L Hematocrit 21.1 L Mean Corpuscular Volume 103.9 H Mean Corpuscular Hemoglobin 33.5 H Mean Corpuscular Hemoglobin Concent 32.2 Red Cell Distribution Width 17.1 H Platelet Count 297 # Mean Platelet Volume 10.8 H Neutrophils % Segmented Neutrophils % (Manual) 75 Band Neutrophils % (Manual) 14 H Lymphocytes % Lymphocytes % (Manual) 5 L Monocytes % Monocytes % (Manual) 4 Eosinophils % Basophils % Basophils % (Manual) 1 Myelocytes % (Manual) 1 H Nucleated Red Blood Cells % 0.0 Neutrophils # Neutrophils # (Manual) 3.3 Band Neutrophils # 0.6 Absolute Lymphocytes (Manual) 0.2 L Lymphocytes # Monocytes # Absolute Monocytes (Manual) 0.1 L Eosinophils # Basophils # Basophils # (Manual) 0.0 Myelocytes # 0.0 Nucleated Red Blood Cells # Platelet Estimate NORMAL Giant Platelets 1 H Polychromasia 3+ Poikilocytosis 1+ Anisocytosis 1+ Macrocytosis 1+ Sodium Level 140 Potassium Level 4.4 Chloride Level 113 H Carbon Dioxide Level 17 L Anion Gap 14 Blood Urea Nitrogen 39 H Creatinine 4.43 H Glucose Level 65 #L Calcium Level 6.7 L Magnesium Level 1.5 L Albumin 2.7 L Test 01/11/17 07:19 01/11/17 08:18 01/11/17 08:41 01/11/17 08:52 White Blood Count 4.5 L Red Blood Count 2.06 L Hemoglobin 6.9 *L Hematocrit 21.7 L Mean Corpuscular Volume 105.3 H Mean Corpuscular Hemoglobin 33.5 H Mean Corpuscular Hemoglobin Concent 31.8 L Red Cell Distribution Width 17.3 H Platelet Count 310 Mean Platelet Volume 10.7 H Neutrophils % 69.8 Lymphocytes % 9.0 L Monocytes % 11.4 H Eosinophils % 1.3 Basophils % 0.2 Nucleated Red Blood Cells % 0.4 H Neutrophils # 3.1 Lymphocytes # 0.4 L Monocytes # 0.5 Eosinophils # 0.1 Basophils # 0.0 Nucleated Red Blood Cells # 0.0 Bedside Glucose 68 L 86 120 Test 01/11/17 11:05 01/11/17 11:40 01/11/17 12:14 01/11/17 17:28 Urine Random Creatinine 34.32 Urine Random Sodium 104 H Stool Occult Blood NEGATIVE Bedside Glucose 87 84 Imaging Free Text/Dictation PROCEDURE: Chest radiograph CLINICAL INDICATION: Possible Sepsis. COMPARISON: Radiograph 02/15/2015. TECHNIQUE: Single frontal chest radiograph. FINDINGS: Linear and curvilinear opacity at the periphery of the left upper lung which may represent pneumonia and/or atelectasis. Linear passing the right mid lung, consistent with atelectasis. The lungs are clear. No pleural effusion or focal parenchymal opacity. Cardiomegaly. No suspicious bone lesion. Mild degenerative endplate spurring throughout the thoracic spine. Possible lucency under the left diaphragm. IMPRESSION: 1. Left upper lobe pneumonia. 2. Atelectasis in the right mid lung. 3. Possible lucency underneath the left diaphragm which could represent free air in the appropriate clinical setting. RPTAT: PP Physician Sayra Date Time Electronically viewed and signed by Kaykay Sosa Physician on 01/10/2017 14: 27 Medications Medications Current Medications Amlodipine Besylate (Norvasc) 5 mg DAILY PO Last administered on 01/11/17 08: 35; Admin Dose 5 MG; Start 01/11/17 at 09:00 Atenolol (Tenormin) 50 mg DAILY PO Last administered on 01/11/17 08:34; Admin Dose 50 MG; Start 01/11/17 at 09:00 Atorvastatin Calcium (Lipitor) 40 mg QHS PO Last administered on 01/10/17 20: 56; Admin Dose 40 MG; Start 01/10/17 at 21:00 Benazepril HCl (Lotensin) 20 mg DAILY PO Last administered on 01/11/17 08:34; Admin Dose 20 MG; Start 01/11/17 at 09:00; Status Future Hold Clopidogrel Bisulfate (plaVIX) 75 mg DAILY PO Last administered on 01/11/17 08 :33; Admin Dose 75 MG; Start 01/11/17 at 09:00 Insulin Glargine (Lantus) 32 unit QHS SC Last administered on 01/10/17 23:47; Admin Dose 32 UNIT; Start 01/10/17 at 21:00 Multivit/Ca Carb/ B Cmplx/FA/Prenat (Paulina-Heber) 1 tab DAILY PO Last administered on 01/11/17 08:33; Admin Dose 1 TAB; Start 01/11/17 at 09:00 Ranolazine 1000 mg 1,000 mg Q12 PO Last administered on 01/11/17 08:32; Admin Dose 1,000 MG; Start 01/10/17 at 21:00 Sodium Chloride (NS) 1,000 ml @ 50 mls/hr Q20H IV Last administered on 05:40; Admin Dose 100 MLS/HR; Start 01/10/17 at 16:59; Stop 01/12/17 at 17: 00 Ondansetron HCl (Zofran Inj) 4 mg Q6H PRN IV NAUSEA AND/OR VOMITING; Start 01/10/17 at 17:00 Acetaminophen (Tylenol Tab) 650 mg Q6H PRN PO PAIN LEVEL 1-3 OR FEVER Last administered on 01/11/17 02:42; Admin Dose 650 MG; Start 01/10/17 at 17:00 Pantoprazole 40 mg 40 mg DAILY@06 PO Last administered on 01/11/17 05:38; Admin Dose 40 MG; Start 01/11/17 at 06:00 Ceftriaxone Sodium 50 ml @ 100 mls/hr Q24H IVPB Last administered on 17:36; Admin Dose 100 MLS/HR; Start 01/10/17 at 17:00 Azithromycin (Zithromax 500mg/ NS (Pmx)) 250 ml @ 250 mls/hr Q24H IVPB Last administered on 01/11/17 18:09; Admin Dose 250 MLS/HR; Start 01/10/17 at 17:00 Miscellaneous Information 1 ea NOTE XX ; Start 01/10/17 at 17:30 Glucose (Glutose) 15 gm Q15M PRN PO DECREASED GLUCOSE; Start 01/10/17 at 17:30 Glucose (Glutose) 22.5 gm Q15M PRN PO DECREASED GLUCOSE; Start 01/10/17 at 17: 30 Dextrose (D50w Syringe) 25 ml Q15M PRN IV DECREASED GLUCOSE; Start 01/10/17 at 17:30 Dextrose (D50w Syringe) 50 ml Q15M PRN IV DECREASED GLUCOSE; Start 01/10/17 at 17:30 Glucagon (Glucagen) 1 mg Q15M PRN IM DECREASED GLUCOSE; Start 01/10/17 at 17:30 Glucose (Glutose) 15 gm Q15M PRN BUCCAL DECREASED GLUCOSE; Start 01/10/17 at 17 :30 Diagnostic Test (Pha) (Accu-Chek) 1 ea 02 XX ; Start 01/11/17 at 02:00 Aspirin (Aspirin) 81 mg DAILY PO Last administered on 01/11/17 11:42; Admin Dose 81 MG; Start 01/11/17 at 10:00 Hydralazine HCl (Apresoline) 10 mg Q4H PRN IV sbp>160; Start 01/11/17 at 10:00 Tamsulosin HCl (Flomax) 0.4 mg HS PO ; Start 01/11/17 at 21:00 Ferrous Sulfate (Ferrous Sulfate (Ec)) 325 mg BID PO ; Start 01/11/17 at 21:00 Ascorbic Acid (Vitamin C) 500 mg BID PO ; Start 01/11/17 at 21:00 Procedures Procedures IMPRESSION: Distended urinary bladder with moderate bilateral hydronephrosis and hydroureter. Mildly prominent prostate gland. The findings may be due to urinary retention or bladder outlet obstruction. Recommend clinical correlation. No renal or ureteral stone. No evidence of bowel obstruction, appendicitis, or colonic diverticulitis. No evidence of pneumoperitoneum. Status post cholecystectomy. RPTAT: AA .Nathaniel Garrison MD, MD Date Time Electronically viewed and signed by .Nathaniel Garrison MD, MD on 01/11/2017 12:19 AMANDA FERREIRA MD Jan 11, 2017 18:20
--- NOTE | 2017-01-11 18:30 | CONS ---
Date/Time of Note Date/Time of Note DATE: 01/11/17 TIME: 18:27 Assessment/Plan Assessment/Plan Additional Assessment/Plan 71 yo male with 1) KARLOS Vs KARLOS on CKD Non Oliguric, CT scan shows Hydronephrosis, S/p Romero catheter 2) Anemia, S/p PRBC, BP stable, Iron Deficiency 3) Metabolic acidosis in the setting KARLOS 4) LLL PNA 5) Sepsis 6) DM with Likely DM CKD Cont current Rx and plan pt is off of Gautam-I Repeat H/Hct, transfuse if H<7.5 Appreciate URology consultation F/u Urine studies and Blood work. Consultation Date/Type/Reason Admit Date/Time Jan 10, 2017 at 16:17 Date of Consultation: Jan 11, 2017 Type of Consultation: Nephrology Reason for Consultation KARLOS Referring Provider: BART WILSON Hx of Present Illness 71 yo M with PMH CKD, CAD s/p stent 2016, HTN, DM, HLD, and history of prostate CA presented to ED complaining of generalized body aches, fevers, chills, nausea , vomiting, diarrhea, and cough with productive sputum. Found to have elevated BUN, Cr. CT abdomen showed hydronephrosis. S/p Romero with approxc 600cc. Dr Lim is Urologist. Nephrology consulted for KARLOS, CKD . Constitutional: No requiring O2 Past Medical History Medical History: coronary artery disease, diabetes, hypertension, other ( prostate cancer) Past Surgical History Past Surgical Hx: cholecystectomy, other (stent placement 2015) Family History Significant Family History: no pertinent family hx Social History Alcohol Use: none Smoking Status: Former smoker Drug Use: none Exam/Review of Systems Vital Signs Vitals Vital Signs Date Time Temp Pulse Resp B/P Pulse Ox O2 Delivery O2 Flow Rate FiO2 01/11/17 17:48 81 20 93 01/11/17 15:05 97.8 131/69 Room Air 01/10/17 14:38 2.0 Intake and Output 01/10/17 01/10/17 01/11/17 14:59 22:59 06:59 Intake Total 300 ml 1500 ml Output Total 800 ml Balance 300 ml 700 ml Exam Constitutional: alert, oriented, No distress Psych: nl mood/affect, No anxiety Head: atraumatic, normocephalic Eyes: EOMI, PERRL ENMT: mucosa pink and moist Neck: supple, No jvd Respiratory: normal air movement, No diminished breath sounds, No labored breathing Cardiovascular: regular rate and rhythm, No edema Gastrointestinal: non-tender, soft, No distended, No rebound or guarding Genitourinary - Male: other (Romero) Musculoskeletal: nl extremities to inspection Neurological: [employer] II-XII intact, nl mental status, No confused, No lethargic Skin: nl turgor, No diaphoresis, No rash or lesions Results Result Diagram: 01/11/17 0719 01/11/17 0537 Results 24 hrs Laboratory Tests Test 01/10/17 22:44 01/11/17 05:36 01/11/17 05:37 01/11/17 07:19 Bedside Glucose 153 Phosphorus Level 5.0 H 4.9 Iron Level < 10 L Total Iron Binding Capacity 172 L Percent Iron Saturation Ferritin 478.0 H White Blood Count 4.4 #L 4.5 L Red Blood Count 2.03 L 2.06 L Hemoglobin 6.8 *L 6.9 *L Hematocrit 21.1 L 21.7 L Mean Corpuscular Volume 103.9 H 105.3 H Mean Corpuscular Hemoglobin 33.5 H 33.5 H Mean Corpuscular Hemoglobin Concent 32.2 31.8 L Red Cell Distribution Width 17.1 H 17.3 H Platelet Count 297 # 310 Mean Platelet Volume 10.8 H 10.7 H Neutrophils % 69.8 Segmented Neutrophils % (Manual) 75 Band Neutrophils % (Manual) 14 H Lymphocytes % 9.0 L Lymphocytes % (Manual) 5 L Monocytes % 11.4 H Monocytes % (Manual) 4 Eosinophils % 1.3 Basophils % 0.2 Basophils % (Manual) 1 Myelocytes % (Manual) 1 H Nucleated Red Blood Cells % 0.0 0.4 H Neutrophils # 3.1 Neutrophils # (Manual) 3.3 Band Neutrophils # 0.6 Absolute Lymphocytes (Manual) 0.2 L Lymphocytes # 0.4 L Monocytes # 0.5 Absolute Monocytes (Manual) 0.1 L Eosinophils # 0.1 Basophils # 0.0 Basophils # (Manual) 0.0 Myelocytes # 0.0 Nucleated Red Blood Cells # 0.0 Platelet Estimate NORMAL Giant Platelets 1 H Polychromasia 3+ Poikilocytosis 1+ Anisocytosis 1+ Macrocytosis 1+ Sodium Level 140 Potassium Level 4.4 Chloride Level 113 H Carbon Dioxide Level 17 L Anion Gap 14 Blood Urea Nitrogen 39 H Creatinine 4.43 H Glucose Level 65 #L Calcium Level 6.7 L Magnesium Level 1.5 L Albumin 2.7 L Test 01/11/17 08:18 01/11/17 08:41 01/11/17 08:52 01/11/17 11:05 Bedside Glucose 68 L 86 120 Urine Random Creatinine 34.32 Urine Random Sodium 104 H Test 01/11/17 11:40 01/11/17 12:14 01/11/17 17:28 Stool Occult Blood NEGATIVE Bedside Glucose 87 84 Imaging Free Text/Dictation IMPRESSION: 1. Left upper lobe pneumonia. 2. Atelectasis in the right mid lung. 3. Possible lucency underneath the left diaphragm which could represent free air in the appropriate clinical setting. RPTAT: PP Medications Medications Current Medications Amlodipine Besylate (Norvasc) 5 mg DAILY PO Last administered on 01/11/17 08: 35; Admin Dose 5 MG; Start 01/11/17 at 09:00 Atenolol (Tenormin) 50 mg DAILY PO Last administered on 01/11/17 08:34; Admin Dose 50 MG; Start 01/11/17 at 09:00 Atorvastatin Calcium (Lipitor) 40 mg QHS PO Last administered on 01/10/17 20: 56; Admin Dose 40 MG; Start 01/10/17 at 21:00 Benazepril HCl (Lotensin) 20 mg DAILY PO Last administered on 01/11/17 08:34; Admin Dose 20 MG; Start 01/11/17 at 09:00; Status Future Hold Clopidogrel Bisulfate (plaVIX) 75 mg DAILY PO Last administered on 01/11/17 08 :33; Admin Dose 75 MG; Start 01/11/17 at 09:00 Insulin Glargine (Lantus) 32 unit QHS SC Last administered on 01/10/17 23:47; Admin Dose 32 UNIT; Start 01/10/17 at 21:00 Multivit/Ca Carb/ B Cmplx/FA/Prenat (Paulina-Heber) 1 tab DAILY PO Last administered on 01/11/17 08:33; Admin Dose 1 TAB; Start 01/11/17 at 09:00 Ranolazine 1000 mg 1,000 mg Q12 PO Last administered on 01/11/17 08:32; Admin Dose 1,000 MG; Start 01/10/17 at 21:00 Sodium Chloride (NS) 1,000 ml @ 50 mls/hr Q20H IV Last administered on 05:40; Admin Dose 100 MLS/HR; Start 01/10/17 at 16:59; Stop 01/12/17 at 17: 00 Ondansetron HCl (Zofran Inj) 4 mg Q6H PRN IV NAUSEA AND/OR VOMITING; Start 01/10/17 at 17:00 Acetaminophen (Tylenol Tab) 650 mg Q6H PRN PO PAIN LEVEL 1-3 OR FEVER Last administered on 01/11/17 02:42; Admin Dose 650 MG; Start 01/10/17 at 17:00 Pantoprazole 40 mg 40 mg DAILY@06 PO Last administered on 01/11/17 05:38; Admin Dose 40 MG; Start 01/11/17 at 06:00 Ceftriaxone Sodium 50 ml @ 100 mls/hr Q24H IVPB Last administered on 17:36; Admin Dose 100 MLS/HR; Start 01/10/17 at 17:00 Azithromycin (Zithromax 500mg/ NS (Pmx)) 250 ml @ 250 mls/hr Q24H IVPB Last administered on 01/11/17 18:09; Admin Dose 250 MLS/HR; Start 01/10/17 at 17:00 Miscellaneous Information 1 ea NOTE XX ; Start 01/10/17 at 17:30 Glucose (Glutose) 15 gm Q15M PRN PO DECREASED GLUCOSE; Start 01/10/17 at 17:30 Glucose (Glutose) 22.5 gm Q15M PRN PO DECREASED GLUCOSE; Start 01/10/17 at 17: 30 Dextrose (D50w Syringe) 25 ml Q15M PRN IV DECREASED GLUCOSE; Start 01/10/17 at 17:30 Dextrose (D50w Syringe) 50 ml Q15M PRN IV DECREASED GLUCOSE; Start 01/10/17 at 17:30 Glucagon (Glucagen) 1 mg Q15M PRN IM DECREASED GLUCOSE; Start 01/10/17 at 17:30 Glucose (Glutose) 15 gm Q15M PRN BUCCAL DECREASED GLUCOSE; Start 01/10/17 at 17 :30 Diagnostic Test (Pha) (Accu-Chek) 1 ea 02 XX ; Start 01/11/17 at 02:00 Aspirin (Aspirin) 81 mg DAILY PO Last administered on 01/11/17t 11:42; Admin Dose 81 MG; Start 01/11/17 at 10:00 Hydralazine HCl (Apresoline) 10 mg Q4H PRN IV sbp>160; Start 01/11/17 at 10:00 Tamsulosin HCl (Flomax) 0.4 mg HS PO ; Start 01/11/17 at 21:00 Ferrous Sulfate (Ferrous Sulfate (Ec)) 325 mg BID PO ; Start 01/11/17 at 21:00 Ascorbic Acid (Vitamin C) 500 mg BID PO ; Start 01/11/17 at 21:00 Procedures Procedures IMPRESSION: Distended urinary bladder with moderate bilateral hydronephrosis and hydroureter. Mildly prominent prostate gland. The findings may be due to urinary retention or bladder outlet obstruction. Recommend clinical correlation. No renal or ureteral stone. No evidence of bowel obstruction, appendicitis, or colonic diverticulitis. No evidence of pneumoperitoneum. Status post cholecystectomy. RPTAT: AA .Nathaniel Garrison MD, Date Time AMANDA FERREIRA MD Jan 11, 2017 18:30
[2017-01-11 19:43] LABS: HEMATOCRIT 25.4 % (42.0-52.0); HEMOGLOBIN 8.1 g/dl (14.0-18.0)
[2017-01-11 19:53] VITALS: BP 154/72; RESP 18
[2017-01-11] MEDS: ATORVASTATIN 40 MG TAB PO SCH (20:34)
[2017-01-11] MEDS: TAMSULOSIN (SR) 0.4 MG CAP PO SCH (20:34)
[2017-01-11] MEDS: FERROUS SULFATE (EC) 325 MG TAB PO SCH (20:34)
[2017-01-11] MEDS: ASCORBIC ACID 500 MG TAB PO SCH (20:34)
[2017-01-11] MEDS: INSULIN GLARGINE [LANtus] 3 ML PEN SC SCH (21:00)
[2017-01-12 01:39] VITALS: BP 152/79; RESP 18
[2017-01-12] MEDS: ACCU-CHEK XX SCH (02:00)
[2017-01-12] MEDS: ALBUTEROL/IPRATROPIUM (NEB) 3 ML AMP HHN SCH ×4 (02:32→19:44)
[2017-01-12 06:00] LABS: ABNORMAL IP MESSAGE 1; BASOPHILS % 0.8 % (0.0-2.0); EOSINOPHILS # 0.1 10^3/ul (0.0-0.5); EOSINOPHILS % 2.5 % (0.0-7.0); HEMATOCRIT 23.8 % (42.0-52.0); HEMOGLOBIN 7.6 g/dl (14.0-18.0); LYMPHOCYTES # 0.3 10^3/ul (0.8-2.9); LYMPHOCYTES % 8.3 % (15.0-51.0); MEAN CORPUSCULAR HEMOGLOBIN 32.2 pg (29.0-33.0); MEAN CORPUSCULAR HGB CONC 31.9 g/dl (32.0-37.0); MEAN CORPUSCULAR VOLUME 100.8 fl (82.0-101.0); MONOCYTE # 0.3 10^3/ul (0.3-0.9); MONOCYTES % 8.8 % (0.0-11.0); NEUTROPHIL # 2.7 10^3/ul (1.6-7.5); NEUTROPHILS % 73.3 % (39.0-77.0); PLATELET COUNT 290 10^3/UL (140-415); POSITIVE DIFF @See below; RED BLOOD COUNT 2.36 10^6/ul (4.70-6.10); RED CELL DISTRIBUTION WIDTH 18.6 % (11.5-14.5); WHITE BLOOD COUNT 3.6 10^3/ul (4.8-10.8)
--- NOTE | 2017-01-12 06:06 | CONS ---
DATE OF ADMISSION: 01/10/2017 DATE OF CONSULTATION: 01/11/2017 REQUESTING PHYSICIAN: Matheus Lopez MD Dear Dr. Lopez: Thank you for asking me to see this patient in urological consultation. This is a 71-year-old male who is well known to me, have taken care of him since 2008, and he is known to have had a history of prostate cancer and has been on Lupron Depot injections; he was on it from 2009 until 2011, then I had to resume his medications recently, about a year and a half ago because of elevation of his PSA again. The patient also has had a history of right hydronephrosis in the past and the bladder stone and he, for a while, had a urinary tract infection and when this was treated, he was able to urinat e. He presented to [facility] because of generalized body ache, fever, chills, na usea, vomiting, diarrhea and cough with productive sputum for about 2 days prior to his admission. A urological consultation was requested because on the CT scan, it showed that he does have urinary retention and bilateral hydronephrosis. PAST MEDICAL HISTORY: This patient is known to have a history of chronic kidney disease, coronary a rtery disease. He did have a stent placement in 2015, history of hypertension, diabetes mellitus, a nd HDL. SOCIAL HISTORY: He does not smoke, does not drink, and no history of alcohol abuse. PAST SURGICAL HISTORY: He did have a coronary stent placement. He has had in the past, cystoscopy and insertion of right ureteral JJ stent in 11/2009. He also has had a bladder stone removed in . HOME MEDICATIONS: Were reviewed and presently he is on: 1. Amlodipine. 2. Atenolol. 3. Atorvastatin. 4. Benazepril. 5. Plavix. 6. Insulin. 7. Multivitamin. 8. Ranexa. PHYSICAL EXAMINATION: GENERAL: Reveals an elderly male who presently is comfortable. He did have a Romero catheter put in . VITAL SIGNS: Temperature is 98.1, the pulse is 94, respiration 18, blood pressure 154/72. HEAD AND NECK: The patient looked pale. He has had anemia. ABDOMEN: Soft. At present, the bladder is not distended. GENITALIA: External genitalia, he does have an indwelling Romero catheter that is draining clear uri ne. EXTREMITIES: Reveal no edema. LABORATORY DATA: CBC shows a white count of 4.5, hemoglobin is 6.9, hematocrit 21.7. The BUN is 39 , creatinine 4.43, sodium 140, potassium 4.4, chloride 113, CO2 of 17. PT is 15.1, INR 1.17. The u rinalysis showed 3+ protein and 1+ sugar. The urine culture was done and so far it is negative. IMPRESSION: History of prostate cancer. The patient has been on Lupron Depot. The patient does renee ve severe anemia now and bilateral hydronephrosis. PLAN: Keep the Romero catheter in. We shall check his serum PSA and also once the catheter is drain ing and we may have to repeat or do a renal ultrasound to see if hydronephrosis is improving. He ma y need later on a cystoscopy to check for obstruction and see if the ureters are obstructed and whet her he requires any new JJ stents put in. I will follow his urological problem with you. I do thank you for allowing me to help in his care. Dictated By: AIDE BRIGHT MD BB/NTS Conf#: [id number] DID#: [id number] CC: KRAIG MUNIZ MD; MATHEUS LOPEZ MD;*End*
[2017-01-12 06:26] LABS: ALBUMIN 2.6 g/dl (3.3-4.9); CALCIUM 7.2 mg/dl (8.4-10.2); CREATININE 4.64 mg/dl (0.61-1.24); MAGNESIUM 1.7 mg/dl (1.7-2.5); PHOSPHORUS 5.4 mg/dl (2.5-4.9); POTASSIUM 4.3 mmol/L (3.5-5.1)
[2017-01-12] MEDS: PANTOPRAZOLE (EC) 40 MG TAB PO SCH (06:39)
[2017-01-12 07:17] VITALS: BP 156/71; RESP 20
--- NOTE | 2017-01-12 08:01 | CONS ---
Date/Time of Note Date/Time of Note DATE: 01/12/17 TIME: 07:57 Consult Date/Type/Reason Admit Date/Time Jan 10, 2017 at 16:17 Initial Consult Date 01/11/17 Type of Consultation: Urology Reason for Consultation Urinary retention and hydronephrosis, patient does have a history of prostate cancer since 2008 Ordering Provider: BART WILSON Subjective The patient feels better, he does have an indwelling Romero catheter that is draining clear urine Objective Vital Signs Date Time Temp Pulse Resp B/P Pulse Ox O2 Delivery O2 Flow Rate FiO2 01/12/17 07:17 98.9 95 20 156/71 95 01/12/17 02:32 21 01/11/17 15:05 Room Air 01/10/17 14:38 2.0 Intake and Output 01/11/17 01/11/17 01/12/17 15:00 23:00 07:00 Intake Total 400 ml 1830 ml 1000 ml Output Total 1200 ml 1750 ml Balance 400 ml 630 ml -750 ml Exam Abdomen is soft, the Romero catheter is draining clear urine Results/Medications Result Diagram: 01/12/17 0511 01/12/17 0512 Results 24 hrs Laboratory Tests Test 01/11/17 08:18 01/11/17 08:41 01/11/17 08:52 01/11/17 11:05 Bedside Glucose 68 L 86 120 Urine Random Creatinine 34.32 Urine Random Sodium 104 H Test 01/11/17 11:40 01/11/17 12:14 01/11/17 17:28 01/11/17 19:25 Stool Occult Blood NEGATIVE Bedside Glucose 87 84 Hemoglobin 8.1 L Hematocrit 25.4 L Test 01/11/17 20:29 01/12/17 05:11 01/12/17 05:12 Bedside Glucose 128 White Blood Count 3.6 L Red Blood Count 2.36 L Hemoglobin 7.6 L Hematocrit 23.8 L Mean Corpuscular Volume 100.8 Mean Corpuscular Hemoglobin 32.2 Mean Corpuscular Hemoglobin Concent 31.9 L Red Cell Distribution Width 18.6 H Platelet Count 290 Mean Platelet Volume 11.0 H Neutrophils % 73.3 Lymphocytes % 8.3 L Monocytes % 8.8 Eosinophils % 2.5 Basophils % 0.8 Nucleated Red Blood Cells % 0.0 Neutrophils # 2.7 Lymphocytes # 0.3 L Monocytes # 0.3 Eosinophils # 0.1 Basophils # 0.0 Nucleated Red Blood Cells # 0.0 Sodium Level 140 Potassium Level 4.3 Chloride Level 112 H Carbon Dioxide Level 18 L Anion Gap 14 Blood Urea Nitrogen 39 H Creatinine 4.64 H Glucose Level 121 # Calcium Level 7.2 L Phosphorus Level 5.4 H Magnesium Level 1.7 Albumin 2.6 L Medications Current Medications Amlodipine Besylate (Norvasc) 5 mg DAILY PO Last administered on 01/11/17 08: 35; Admin Dose 5 MG; Start 01/11/17 at 09:00 Atenolol (Tenormin) 50 mg DAILY PO Last administered on 01/11/17 08:34; Admin Dose 50 MG; Start 01/11/17 at 09:00 Atorvastatin Calcium (Lipitor) 40 mg QHS PO Last administered on 01/11/17 20: 34; Admin Dose 40 MG; Start 01/10/17 at 21:00 Benazepril HCl (Lotensin) 20 mg DAILY PO Last administered on 01/11/17 08:34; Admin Dose 20 MG; Start 01/11/17 at 09:00; Status Future Hold Clopidogrel Bisulfate (plaVIX) 75 mg DAILY PO Last administered on 01/11/17 08 :33; Admin Dose 75 MG; Start 01/11/17 at 09:00 Multivit/Ca Carb/ B Cmplx/FA/Prenat (Paulina-Heber) 1 tab DAILY PO Last administered on 01/11/17 08:33; Admin Dose 1 TAB; Start 01/11/17 at 09:00 Ranolazine 1000 mg 1,000 mg Q12 PO Last administered on 01/11/17 08:32; Admin Dose 1,000 MG; Start 01/10/17 at 21:00 Sodium Chloride (NS) 1,000 ml @ 50 mls/hr Q20H IV Last administered on 05:40; Admin Dose 100 MLS/HR; Start 01/10/17 at 16:59; Stop 01/12/17 at 17: 00 Ondansetron HCl (Zofran Inj) 4 mg Q6H PRN IV NAUSEA AND/OR VOMITING; Start 01/10/17 at 17:00 Acetaminophen (Tylenol Tab) 650 mg Q6H PRN PO PAIN LEVEL 1-3 OR FEVER Last administered on 01/11/17 02:42; Admin Dose 650 MG; Start 01/10/17 at 17:00 Pantoprazole 40 mg 40 mg DAILY@06 PO Last administered on 01/12/17 06:39; Admin Dose 40 MG; Start 01/11/17 at 06:00 Ceftriaxone Sodium 50 ml @ 100 mls/hr Q24H IVPB Last administered on 17:36; Admin Dose 100 MLS/HR; Start 01/10/17 at 17:00 Azithromycin (Zithromax 500mg/ NS (Pmx)) 250 ml @ 250 mls/hr Q24H IVPB Last administered on 01/11/17 18:09; Admin Dose 250 MLS/HR; Start 01/10/17 at 17:00 Miscellaneous Information 1 ea NOTE XX ; Start 01/10/17 at 17:30 Glucose (Glutose) 15 gm Q15M PRN PO DECREASED GLUCOSE; Start 01/10/17 at 17:30 Glucose (Glutose) 22.5 gm Q15M PRN PO DECREASED GLUCOSE; Start 01/10/17 at 17: 30 Dextrose (D50w Syringe) 25 ml Q15M PRN IV DECREASED GLUCOSE; Start 01/10/17 at 17:30 Dextrose (D50w Syringe) 50 ml Q15M PRN IV DECREASED GLUCOSE; Start 01/10/17 at 17:30 Glucagon (Glucagen) 1 mg Q15M PRN IM DECREASED GLUCOSE; Start 01/10/17 at 17:30 Glucose (Glutose) 15 gm Q15M PRN BUCCAL DECREASED GLUCOSE; Start 01/10/17 at 17 :30 Diagnostic Test (Pha) (Accu-Chek) 1 ea 02 XX ; Start 01/11/17 at 02:00 Aspirin (Aspirin) 81 mg DAILY PO Last administered on 01/11/17 11:42; Admin Dose 81 MG; Start 01/11/17 at 10:00 Hydralazine HCl (Apresoline) 10 mg Q4H PRN IV sbp>160; Start 01/11/17 at 10:00 Tamsulosin HCl (Flomax) 0.4 mg HS PO Last administered on 01/11/17 20:34; Admin Dose 0.4 MG; Start 01/11/17 at 21:00 Ferrous Sulfate (Ferrous Sulfate (Ec)) 325 mg BID PO Last administered on 20:34; Admin Dose 325 MG; Start 01/11/17 at 21:00 Ascorbic Acid (Vitamin C) 500 mg BID PO Last administered on 01/11/17 20:34; Admin Dose 500 MG; Start 01/11/17 at 21:00 Insulin Glargine (Lantus) 32 unit AM SC ; Start 01/12/17 at 09:00 Assessment/Plan Chief Complaint/Hosp Course 71-year-old male who is known to me for many years, has prostate cancer, and has been on Lupron Depot injections presented to the hospital was difficulty breathing generalized body ache. CT scan did show bilateral hydronephrosis and urinary retention. Romero catheter has been inserted and it is draining well. His renal function did not improve much even with the Romero catheter in. We will keep the Romero catheter in place and monitor his renal function and nephrology is following him for his renal failure as well. He is anemic. We will do also a bone scan to check for bony metastases and check his PSA Problems: AIDE BRIGHT MD Jan 12, 2017 08:01
[2017-01-12] MEDS: INSULIN ASPART [NOVOLOG] 3 ML PEN SC SCH ×4 (08:15→21:00)
[2017-01-12] MEDS: INSULIN GLARGINE [LANtus] 3 ML PEN SC SCH (08:46)
[2017-01-12] MEDS: ASPIRIN 81 MG TAB PO SCH (09:00)
[2017-01-12] MEDS: CLOPIDOGREL 75 MG TAB PO SCH (09:00)
[2017-01-12] MEDS: FERROUS SULFATE (EC) 325 MG TAB PO SCH ×2 (09:40→21:29)
[2017-01-12] MEDS: AMLODIPINE 5 MG TAB PO SCH (09:40)
[2017-01-12] MEDS: ASCORBIC ACID 500 MG TAB PO SCH ×2 (09:40→21:29)
[2017-01-12 09:41] LABS: ANISOCYTOSIS 1+ (0-0); BASOPHILS % (M) 2 % (0-2); EOSINOPHILS % (M) 1 % (0-7); GIANT THROMBO% (M) 3 % (0-0); MICROCYTOSIS 1+ (0-0); MONOCYTES % (M) 6 % (0-11); PLATELET ESTIMATE NORMAL; POIKILOCYTOSIS 2+ (0-0); POLYCHROMASIA 3+ (0-0); REACTIVE LYMPHOCYTES% (M) 3 % (0-0)
[2017-01-12] MEDS: RANOLAZINE (SR) 500 MG TAB PO SCH ×2 (09:41→21:29)
[2017-01-12] MEDS: ATENOLOL 50 MG TAB PO SCH (09:41)
[2017-01-12] MEDS: MULTIVIT/CA CARB/B CMPLX/FA TAB PO SCH (09:44)
[2017-01-12] MEDS: SOD CHLORIDE 0.9% 1,000 ML IV SCH (09:44)
[2017-01-12 09:45] VITALS: BP 132/80; PULSE 104
[2017-01-12] MEDS ORDERED: HYDROCODONE/APAP (5/325) TAB PO PRN (11:30)
--- NOTE | 2017-01-12 12:45 | CONS ---
Date/Time of Note Date/Time of Note DATE: 01/12/17 TIME: 12:45 Assessment/Plan Assessment/Plan Additional Assessment/Plan 71 yo male with 1) KARLOS Vs KARLOS on CKD Non Oliguric, CT scan shows Hydronephrosis, S/p Jordan catheter 2) Anemia, S/p PRBC, BP stable, Iron Deficiency 3) Metabolic acidosis in the setting KARLOS 4) LLL PNA 5) Sepsis 6) DM with Likely DM CKD Cont jordan catheter Seen by Urology Avoid nephrtoxic Rx INO-I Held, BP controlled Renal Diet Consultation Date/Type/Reason Admit Date/Time Jan 10, 2017 at 16:17 Type of Consultation: Renal Referring Provider: BART WILSON 24 HR Interval Summary Free Text/Dictation No new complaints,Jordan present good UO, Seen by URology Constitutional: No requiring O2 Exam/Review of Systems Vital Signs Vitals Vital Signs Date Time Temp Pulse Resp B/P Pulse Ox O2 Delivery O2 Flow Rate FiO2 01/12/17 09:45 104 132/80 01/12/17 07:17 98.9 20 95 01/12/17 02:32 21 01/11/17 15:05 Room Air 01/10/17 14:38 2.0 Intake and Output 01/11/17 01/11/17 01/12/17 15:00 23:00 07:00 Intake Total 400 ml 1830 ml 1000 ml Output Total 1200 ml 1750 ml Balance 400 ml 630 ml -750 ml Exam Constitutional: alert, No distress ENMT: mucosa pink and moist Neck: No jvd Respiratory: No diminished breath sounds, No labored breathing Cardiovascular: regular rate and rhythm, No edema Gastrointestinal: non-tender, soft Genitourinary - Male: No CVA tenderness Extremities: No edema Neurological: nl mental status, No lethargic Skin: No diaphoresis Results Result Diagram: 01/12/17 0511 01/12/17 0512 Results 24 hrs Laboratory Tests Test 01/11/17 17:28 01/11/17 19:25 01/11/17 20:29 01/12/17 05:11 Bedside Glucose 84 128 Hemoglobin 8.1 L 7.6 L Hematocrit 25.4 L 23.8 L White Blood Count 3.6 L Red Blood Count 2.36 L Mean Corpuscular Volume 100.8 Mean Corpuscular Hemoglobin 32.2 Mean Corpuscular Hemoglobin Concent 31.9 L Red Cell Distribution Width 18.6 H Platelet Count 290 Mean Platelet Volume 11.0 H Neutrophils % 73.3 Segmented Neutrophils % (Manual) 69 Band Neutrophils % (Manual) 12 H Lymphocytes % 8.3 L Lymphocytes % (Manual) 7 L Reactive Lymphocytes % (Manual) 3 H Monocytes % 8.8 Monocytes % (Manual) 6 Eosinophils % 2.5 Eosinophils % (Manual) 1 Basophils % 0.8 Basophils % (Manual) 2 Nucleated Red Blood Cells % 0.0 Neutrophils # 2.7 Neutrophils # (Manual) 2.5 Band Neutrophils # 0.4 Absolute Lymphocytes (Manual) 0.2 L Lymphocytes # 0.3 L Reactive Lymphocytes # 0.1 H Monocytes # 0.3 Absolute Monocytes (Manual) 0.2 L Eosinophils # 0.1 Basophils # 0.0 Basophils # (Manual) 0.0 Nucleated Red Blood Cells # 0.0 Platelet Estimate NORMAL Giant Platelets 3 H Polychromasia 3+ Poikilocytosis 2+ Anisocytosis 1+ Microcytosis 1+ Test 01/12/17 05:12 01/12/17 08:39 Sodium Level 140 Potassium Level 4.3 Chloride Level 112 H Carbon Dioxide Level 18 L Anion Gap 14 Blood Urea Nitrogen 39 H Creatinine 4.64 H Glucose Level 121 # Calcium Level 7.2 L Phosphorus Level 5.4 H Magnesium Level 1.7 Albumin 2.6 L Prostate Specific Antigen 2.9 Bedside Glucose 121 Medications Medications Current Medications Amlodipine Besylate (Norvasc) 5 mg DAILY PO Last administered on 01/12/17 09: 40; Admin Dose 5 MG; Start 01/11/17 at 09:00 Atenolol (Tenormin) 50 mg DAILY PO Last administered on 01/12/17 09:41; Admin Dose 50 MG; Start 01/11/17 at 09:00 Atorvastatin Calcium (Lipitor) 40 mg QHS PO Last administered on 01/11/17 20: 34; Admin Dose 40 MG; Start 01/10/17 at 21:00 Benazepril HCl (Lotensin) 20 mg DAILY PO Last administered on 01/11/17 08:34; Admin Dose 20 MG; Start 01/11/17 at 09:00; Status Future Hold Clopidogrel Bisulfate (plaVIX) 75 mg DAILY PO Last administered on 01/11/17 08 :33; Admin Dose 75 MG; Start 01/11/17 at 09:00 Multivit/Ca Carb/ B Cmplx/FA/Prenat (Paulina-Heber) 1 tab DAILY PO Last administered on 01/12/17 09:44; Admin Dose 1 TAB; Start 01/11/17 at 09:00 Ranolazine 1000 mg 1,000 mg Q12 PO Last administered on 01/12/17 09:41; Admin Dose 1,000 MG; Start 01/10/17 at 21:00 Sodium Chloride (NS) 1,000 ml @ 50 mls/hr Q20H IV Last administered on 09:44; Admin Dose 50 MLS/HR; Start 01/10/17 at 16:59; Stop 01/12/17 at 17: 00 Ondansetron HCl (Zofran Inj) 4 mg Q6H PRN IV NAUSEA AND/OR VOMITING; Start 01/10/17 at 17:00 Acetaminophen (Tylenol Tab) 650 mg Q6H PRN PO PAIN LEVEL 1-3 OR FEVER Last administered on 01/11/17 02:42; Admin Dose 650 MG; Start 01/10/17 at 17:00 Pantoprazole 40 mg 40 mg DAILY@06 PO Last administered on 01/12/17 06:39; Admin Dose 40 MG; Start 01/11/17 at 06:00 Ceftriaxone Sodium 50 ml @ 100 mls/hr Q24H IVPB Last administered on 17:36; Admin Dose 100 MLS/HR; Start 01/10/17 at 17:00 Azithromycin (Zithromax 500mg/ NS (Pmx)) 250 ml @ 250 mls/hr Q24H IVPB Last administered on 01/11/17 18:09; Admin Dose 250 MLS/HR; Start 01/10/17 at 17:00 Miscellaneous Information 1 ea NOTE XX ; Start 01/10/17 at 17:30 Glucose (Glutose) 15 gm Q15M PRN PO DECREASED GLUCOSE; Start 01/10/17 at 17:30 Glucose (Glutose) 22.5 gm Q15M PRN PO DECREASED GLUCOSE; Start 01/10/17 at 17: 30 Dextrose (D50w Syringe) 25 ml Q15M PRN IV DECREASED GLUCOSE; Start 01/10/17 at 17:30 Dextrose (D50w Syringe) 50 ml Q15M PRN IV DECREASED GLUCOSE; Start 01/10/17 at 17:30 Glucagon (Glucagen) 1 mg Q15M PRN IM DECREASED GLUCOSE; Start 01/10/17 at 17:30 Glucose (Glutose) 15 gm Q15M PRN BUCCAL DECREASED GLUCOSE; Start 01/10/17 at 17 :30 Diagnostic Test (Pha) (Accu-Chek) 1 ea 02 XX ; Start 01/11/17 at 02:00 Aspirin (Aspirin) 81 mg DAILY PO Last administered on 01/11/17 11:42; Admin Dose 81 MG; Start 01/11/17 at 10:00 Hydralazine HCl (Apresoline) 10 mg Q4H PRN IV sbp>160; Start 01/11/17 at 10:00 Tamsulosin HCl (Flomax) 0.4 mg HS PO Last administered on 01/11/17 20:34; Admin Dose 0.4 MG; Start 01/11/17 at 21:00 Ferrous Sulfate (Ferrous Sulfate (Ec)) 325 mg BID PO Last administered on 09:40; Admin Dose 325 MG; Start 01/11/17 at 21:00 Ascorbic Acid (Vitamin C) 500 mg BID PO Last administered on 01/12/17 09:40; Admin Dose 500 MG; Start 01/11/17 at 21:00 Insulin Glargine (Lantus) 32 unit AM SC Last administered on 01/12/17 08:46; Admin Dose 32 UNIT; Start 01/12/17 at 09:00 Acetaminophen/ Hydrocodone Bitart ([place] (5/325)) 1 tab Q4H PRN PO pain 4-10; Start 01/12/17 at 11:30 AMANDA FERREIRA MD Jan 12, 2017 12:45
[2017-01-12 14:10] VITALS: BP 156/73; RESP 18
--- NOTE | 2017-01-12 14:48 | PN ---
Date/Time of Note Date/Time of Note DATE: 01/12/17 TIME: 14:45 Assessment/Plan VTE Prophylaxis VTE Prophylaxis Intervention: ambulation, SCD's Lines/Catheters IV Catheter Type (from Nrsg): Peripheral IV Urinary Cath still in place: Yes Reason Cath still needed: urinary retention Assessment/Plan Chief Complaint/Hosp Course s: 12.4 patient has minimal sob 12.5 no sob, has jordan in, draining well, no acute complaints o: Physical exam General: Patient is laying in bed and answers questions appropriately Mentation: Patient is alert and oriented 4, Head: Normocephalic atraumatic Eyes: EOMI, pupils reactive to light Neck: Supple, nontender, midline Respiratory: coarse to auscultation bilaterally Cardiovascular: regular rate, no obvious murmurs Gastrointestinal: non-tender to palpation, bowel sounds heard. Neurological: Moves all extremities spontaneously Skin: No new skin lesions Assessment/Plan Left upper lobe pneumonia - patient experiencing generalized body aches and fevers - switching to PO abx - in no acute respiratory distress -CT not showing signs of pneumonia, will continue abx for now as patient was febrile - PRN nebs KARLOS on CKD - patient has known CKD but baseline unknown - CT showing hydronephrosis, contacted Dr. Lim, urology, monitoring for now with jordan - KARLOS on CKD, contacted Dr. Benitez, nephrology Anemia, most likely secondary to CKD and chronic disease - will check iron studies, appears low - will start iron with vit c -fobt negative Diabetes Mellitus - A1c ordered - insulin home dose continued - ISS and accuchecks hypocalcemia - on replacement as needed CAD -patient was not on aspirin, granted patient had stent in 2015, feb, will restart asa and plavix dispo -awaiting nephro/urology recs Problems: Exam/Review of Systems Vital Signs Vitals Vital Signs Date Time Temp Pulse Resp B/P Pulse Ox O2 Delivery O2 Flow Rate FiO2 01/12/17 13:30 90 18 98 21 01/12/17 09:45 132/80 01/12/17 07:17 98.9 01/11/17 15:05 Room Air 01/10/17 14:38 2.0 Intake and Output 01/11/17 01/11/17 01/12/17 15:00 23:00 07:00 Intake Total 400 ml 1830 ml 1000 ml Output Total 1200 ml 1750 ml Balance 400 ml 630 ml -750 ml Results Result Diagram: 01/12/17 0511 01/12/17 0512 Results 24 hrs Laboratory Tests Test 01/11/17 17:28 01/11/17 19:25 01/11/17 20:29 01/12/17 05:11 Bedside Glucose 84 128 Hemoglobin 8.1 L 7.6 L Hematocrit 25.4 L 23.8 L White Blood Count 3.6 L Red Blood Count 2.36 L Mean Corpuscular Volume 100.8 Mean Corpuscular Hemoglobin 32.2 Mean Corpuscular Hemoglobin Concent 31.9 L Red Cell Distribution Width 18.6 H Platelet Count 290 Mean Platelet Volume 11.0 H Neutrophils % 73.3 Segmented Neutrophils % (Manual) 69 Band Neutrophils % (Manual) 12 H Lymphocytes % 8.3 L Lymphocytes % (Manual) 7 L Reactive Lymphocytes % (Manual) 3 H Monocytes % 8.8 Monocytes % (Manual) 6 Eosinophils % 2.5 Eosinophils % (Manual) 1 Basophils % 0.8 Basophils % (Manual) 2 Nucleated Red Blood Cells % 0.0 Neutrophils # 2.7 Neutrophils # (Manual) 2.5 Band Neutrophils # 0.4 Absolute Lymphocytes (Manual) 0.2 L Lymphocytes # 0.3 L Reactive Lymphocytes # 0.1 H Monocytes # 0.3 Absolute Monocytes (Manual) 0.2 L Eosinophils # 0.1 Basophils # 0.0 Basophils # (Manual) 0.0 Nucleated Red Blood Cells # 0.0 Platelet Estimate NORMAL Giant Platelets 3 H Polychromasia 3+ Poikilocytosis 2+ Anisocytosis 1+ Microcytosis 1+ Test 01/12/17 05:12 01/12/17 08:39 01/12/17 12:38 Sodium Level 140 Potassium Level 4.3 Chloride Level 112 H Carbon Dioxide Level 18 L Anion Gap 14 Blood Urea Nitrogen 39 H Creatinine 4.64 H Glucose Level 121 # Calcium Level 7.2 L Phosphorus Level 5.4 H Magnesium Level 1.7 Albumin 2.6 L Prostate Specific Antigen 2.9 Bedside Glucose 121 115 Medications Medications Current Medications Amlodipine Besylate (Norvasc) 5 mg DAILY PO Last administered on 01/12/17 09: 40; Admin Dose 5 MG; Start 01/11/17 at 09:00 Atenolol (Tenormin) 50 mg DAILY PO Last administered on 01/12/17 09:41; Admin Dose 50 MG; Start 01/11/17 at 09:00 Atorvastatin Calcium (Lipitor) 40 mg QHS PO Last administered on 01/11/17 20: 34; Admin Dose 40 MG; Start 01/10/17 at 21:00 Benazepril HCl (Lotensin) 20 mg DAILY PO Last administered on 01/11/17 08:34; Admin Dose 20 MG; Start 01/11/17 at 09:00; Status Future Hold Clopidogrel Bisulfate (plaVIX) 75 mg DAILY PO Last administered on 01/11/17 08 :33; Admin Dose 75 MG; Start 01/11/17 at 09:00 Multivit/Ca Carb/ B Cmplx/FA/Prenat (Paulina-Heber) 1 tab DAILY PO Last administered on 01/12/17 09:44; Admin Dose 1 TAB; Start 01/11/17 at 09:00 Ranolazine 1000 mg 1,000 mg Q12 PO Last administered on 01/12/17 09:41; Admin Dose 1,000 MG; Start 01/10/17 at 21:00 Sodium Chloride (NS) 1,000 ml @ 50 mls/hr Q20H IV Last administered on 09:44; Admin Dose 50 MLS/HR; Start 01/10/17 at 16:59; Stop 01/12/17 at 17: 00 Ondansetron HCl (Zofran Inj) 4 mg Q6H PRN IV NAUSEA AND/OR VOMITING; Start 01/10/17 at 17:00 Acetaminophen (Tylenol Tab) 650 mg Q6H PRN PO PAIN LEVEL 1-3 OR FEVER Last administered on 01/11/17 02:42; Admin Dose 650 MG; Start 01/10/17 at 17:00 Pantoprazole 40 mg 40 mg DAILY@06 PO Last administered on 01/12/17 06:39; Admin Dose 40 MG; Start 01/11/17 at 06:00 Ceftriaxone Sodium 50 ml @ 100 mls/hr Q24H IVPB Last administered on 17:36; Admin Dose 100 MLS/HR; Start 01/10/17 at 17:00 Azithromycin (Zithromax 500mg/ NS (Pmx)) 250 ml @ 250 mls/hr Q24H IVPB Last administered on 01/11/17 18:09; Admin Dose 250 MLS/HR; Start 01/10/17 at 17:00 Miscellaneous Information 1 ea NOTE XX ; Start 01/10/17 at 17:30 Glucose (Glutose) 15 gm Q15M PRN PO DECREASED GLUCOSE; Start 01/10/17 at 17:30 Glucose (Glutose) 22.5 gm Q15M PRN PO DECREASED GLUCOSE; Start 01/10/17 at 17: 30 Dextrose (D50w Syringe) 25 ml Q15M PRN IV DECREASED GLUCOSE; Start 01/10/17 at 17:30 Dextrose (D50w Syringe) 50 ml Q15M PRN IV DECREASED GLUCOSE; Start 01/10/17 at 17:30 Glucagon (Glucagen) 1 mg Q15M PRN IM DECREASED GLUCOSE; Start 01/10/17 at 17:30 Glucose (Glutose) 15 gm Q15M PRN BUCCAL DECREASED GLUCOSE; Start 01/10/17 at 17 :30 Diagnostic Test (Pha) (Accu-Chek) 1 ea 02 XX ; Start 01/11/17 at 02:00 Aspirin (Aspirin) 81 mg DAILY PO Last administered on 01/11/17 11:42; Admin Dose 81 MG; Start 01/11/17 at 10:00 Hydralazine HCl (Apresoline) 10 mg Q4H PRN IV sbp>160; Start 01/11/17 at 10:00 Tamsulosin HCl (Flomax) 0.4 mg HS PO Last administered on 01/11/17 20:34; Admin Dose 0.4 MG; Start 01/11/17 at 21:00 Ferrous Sulfate (Ferrous Sulfate (Ec)) 325 mg BID PO Last administered on 09:40; Admin Dose 325 MG; Start 01/11/17 at 21:00 Ascorbic Acid (Vitamin C) 500 mg BID PO Last administered on 01/12/17 09:40; Admin Dose 500 MG; Start 01/11/17 at 21:00 Insulin Glargine (Lantus) 32 unit AM SC Last administered on 01/12/17 08:46; Admin Dose 32 UNIT; Start 01/12/17 at 09:00 Acetaminophen/ Hydrocodone Bitart ([place] (5/325)) 1 tab Q4H PRN PO pain 4-10; Start 01/12/17 at 11:30 BART WILSON Jan 12, 2017 14:48
[2017-01-12] MEDS ORDERED: LEVOFLOXACIN 500MG/D5W (PMX) 100 ML IVPB SCH (15:40)
[2017-01-12] MEDS: CALCIUM ACETATE 667 MG CAP PO SCH (17:17)
[2017-01-12 17:34] LABS: PATH REVIEW CH
[2017-01-12 18:21] LABS: PTH CALCIUM 6.4 mg/dL (8.6-10.3)
[2017-01-12 19:49] VITALS: BP 170/71; RESP 20
--- NOTE | 2017-01-12 21:25 | RADRPT ---
PROCEDURE: Whole body bone scan study CLINICAL INDICATION: 71 -year-old patient with prostate cancer. TECHNIQUE: Following the intravenous injection of approximately 20.0 mCi of Tc-99m MDP, whole body anterior and posterior planar images were obtained along with spot views of the head, neck and ches t. COMPARISON: CT scan of the abdomen and pelvis dated January 11, 2017. FINDINGS: No definite abnormal areas of increased activity or asymmetries are visualized in the study and dist ribution of radionuclide is homogeneous in the skull, spine, rib cages, sternum, pelvis and visualiz ed portions of the upper and lower extremities. Of incidental note, the kidneys are poorly visualized. IMPRESSION: No definite scintigraphic evidence to suggest the presence of skeletal metastases. RPTAT: HH .Keli Smith MD, MD Date Time Electronically viewed and signed by .Keli Smith MD, MD on 01/12/2017 21:24 .L/
[2017-01-12] MEDS: ATORVASTATIN 40 MG TAB PO SCH (21:29)
[2017-01-12] MEDS: TAMSULOSIN (SR) 0.4 MG CAP PO SCH (21:29)
[2017-01-13 00:37] VITALS: BP 145/74
[2017-01-13 00:38] VITALS: BP 145/74; RESP 20
[2017-01-13] MEDS: ALBUTEROL/IPRATROPIUM (NEB) 3 ML AMP HHN SCH ×4 (01:35→20:25)
[2017-01-13] MEDS: ACCU-CHEK XX SCH (01:46)
[2017-01-13] MEDS: PANTOPRAZOLE (EC) 40 MG TAB PO SCH (05:34)
[2017-01-13 06:24] LABS: ABNORMAL IP MESSAGE 1; HEMATOCRIT 23.8 % (42.0-52.0); HEMOGLOBIN 7.9 g/dl (14.0-18.0); MEAN CORPUSCULAR HEMOGLOBIN 33.1 pg (29.0-33.0); MEAN CORPUSCULAR HGB CONC 33.2 g/dl (32.0-37.0); MEAN CORPUSCULAR VOLUME 99.6 fl (82.0-101.0); MEAN PLATELET VOLUME 10.8 fl (7.4-10.4); PLATELET COUNT 284 10^3/UL (140-415); POSITIVE DIFF @See below; RED BLOOD COUNT 2.39 10^6/ul (4.70-6.10); RED CELL DISTRIBUTION WIDTH 17.7 % (11.5-14.5); WHITE BLOOD COUNT 2.3 10^3/ul (4.8-10.8)
[2017-01-13 06:55] LABS: ALBUMIN 2.8 g/dl (3.3-4.9); CALCIUM 7.6 mg/dl (8.4-10.2); CREATININE 4.37 mg/dl (0.61-1.24); MAGNESIUM 1.6 mg/dl (1.7-2.5); PHOSPHORUS 5.3 mg/dl (2.5-4.9); POTASSIUM 4.2 mmol/L (3.5-5.1)
[2017-01-13 07:32] VITALS: BP 146/67; RESP 18
[2017-01-13] MEDS: INSULIN ASPART [NOVOLOG] 3 ML PEN SC SCH ×4 (08:15→20:50)
[2017-01-13] MEDS: CALCIUM ACETATE 667 MG CAP PO SCH ×3 (08:35→17:34)
[2017-01-13] MEDS: CLOPIDOGREL 75 MG TAB PO SCH (08:36)
[2017-01-13] MEDS: FERROUS SULFATE (EC) 325 MG TAB PO SCH ×2 (08:36→20:40)
[2017-01-13] MEDS: ATENOLOL 50 MG TAB PO SCH (08:36)
[2017-01-13] MEDS: ASCORBIC ACID 500 MG TAB PO SCH ×2 (08:36→20:40)
[2017-01-13] MEDS: RANOLAZINE (SR) 500 MG TAB PO SCH ×2 (08:36→20:40)
[2017-01-13] MEDS: ASPIRIN 81 MG TAB PO SCH (08:36)
[2017-01-13] MEDS: MULTIVIT/CA CARB/B CMPLX/FA TAB PO SCH (08:36)
[2017-01-13] MEDS: AMLODIPINE 5 MG TAB PO SCH (08:37)
--- NOTE | 2017-01-13 08:39 | CONS ---
Date/Time of Note Date/Time of Note DATE: 01/13/17 TIME: 08:35 Consult Date/Type/Reason Admit Date/Time Jan 10, 2017 at 16:17 Initial Consult Date 01/11/17 Type of Consultation: Urology Reason for Consultation Adenocarcinoma of the prostate, urinary retention, bilateral hydronephrosis Ordering Provider: BART WILSON Subjective Patient states that he is feeling better and denies having any pain Objective Vital Signs Date Time Temp Pulse Resp B/P Pulse Ox O2 Delivery O2 Flow Rate FiO2 01/13/17 07:38 88 20 97 21 01/13/17 07:32 97.8 146/67 01/11/17 15:05 Room Air 01/10/17 14:38 2.0 Intake and Output 01/12/17 01/12/17 01/13/17 15:00 23:00 07:00 Intake Total 1900 ml 900 ml Output Total 1000 ml 2200 ml Balance 900 ml -1300 ml Exam Abdomen is soft Romero catheter is draining clear urine, the PSA is 2.9 Results/Medications Result Diagram: 01/13/17 0601 01/13/17 0601 Results 24 hrs Laboratory Tests Test 01/12/17 08:39 01/12/17 12:38 01/12/17 17:14 01/12/17 21:28 Bedside Glucose 121 115 88 139 Test 01/13/17 06:01 01/13/17 08:06 White Blood Count 2.3 #L Red Blood Count 2.39 L Hemoglobin 7.9 L Hematocrit 23.8 L Mean Corpuscular Volume 99.6 Mean Corpuscular Hemoglobin 33.1 H Mean Corpuscular Hemoglobin Concent 33.2 Red Cell Distribution Width 17.7 H Platelet Count 284 Mean Platelet Volume 10.8 H Neutrophils % Lymphocytes % Monocytes % Eosinophils % Basophils % Nucleated Red Blood Cells % 0.0 Neutrophils # Lymphocytes # Monocytes # Eosinophils # Basophils # Nucleated Red Blood Cells # Sodium Level 138 Potassium Level 4.2 Chloride Level 110 Carbon Dioxide Level 18 L Anion Gap 14 Blood Urea Nitrogen 37 H Creatinine 4.37 H Glucose Level 91 Calcium Level 7.6 L Phosphorus Level 5.3 H Magnesium Level 1.6 L Albumin 2.8 L Bedside Glucose 108 Bone scan showed no evidence of skeletal metastasis Medications Current Medications Amlodipine Besylate (Norvasc) 5 mg DAILY PO Last administered on 01/12/17t 09: 40; Admin Dose 5 MG; Start 01/11/17 at 09:00 Atenolol (Tenormin) 50 mg DAILY PO Last administered on 01/12/17 09:41; Admin Dose 50 MG; Start 01/11/17 at 09:00 Atorvastatin Calcium (Lipitor) 40 mg QHS PO Last administered on 01/12/17 21: 29; Admin Dose 40 MG; Start 01/10/17 at 21:00 Benazepril HCl (Lotensin) 20 mg DAILY PO Last administered on 01/11/17 08:34; Admin Dose 20 MG; Start 01/11/17 at 09:00; Status Future Hold Clopidogrel Bisulfate (plaVIX) 75 mg DAILY PO Last administered on 01/11/17 08 :33; Admin Dose 75 MG; Start 01/11/17 at 09:00 Multivit/Ca Carb/ B Cmplx/FA/Prenat (Paulina-Heber) 1 tab DAILY PO Last administered on 01/12/17 09:44; Admin Dose 1 TAB; Start 01/11/17 at 09:00 Ranolazine (Ranexa) 1,000 mg Q12 PO Last administered on 01/12/17 21:29; Admin Dose 1,000 MG; Start 01/10/17 at 21:00 Ondansetron HCl (Zofran Inj) 4 mg Q6H PRN IV NAUSEA AND/OR VOMITING; Start 01/10/17 at 17:00 Acetaminophen (Tylenol Tab) 650 mg Q6H PRN PO PAIN LEVEL 1-3 OR FEVER Last administered on 01/11/17 02:42; Admin Dose 650 MG; Start 01/10/17 at 17:00 Pantoprazole (Protonix Tab) 40 mg DAILY@06 PO Last administered on 01/13/17 05 :34; Admin Dose 40 MG; Start 01/11/17 at 06:00 Miscellaneous Information 1 ea NOTE XX ; Start 01/10/17 at 17:30 Glucose (Glutose) 15 gm Q15M PRN PO DECREASED GLUCOSE; Start 01/10/17 at 17:30 Glucose (Glutose) 22.5 gm Q15M PRN PO DECREASED GLUCOSE; Start 01/10/17 at 17: 30 Dextrose (D50w Syringe) 25 ml Q15M PRN IV DECREASED GLUCOSE; Start 01/10/17 at 17:30 Dextrose (D50w Syringe) 50 ml Q15M PRN IV DECREASED GLUCOSE; Start 01/10/17 at 17:30 Glucagon (Glucagen) 1 mg Q15M PRN IM DECREASED GLUCOSE; Start 01/10/17 at 17:30 Glucose (Glutose) 15 gm Q15M PRN BUCCAL DECREASED GLUCOSE; Start 01/10/17 at 17 :30 Diagnostic Test (Pha) (Accu-Chek) 1 ea 02 XX ; Start 01/11/17 at 02:00 Aspirin (Aspirin) 81 mg DAILY PO Last administered on 01/11/17 11:42; Admin Dose 81 MG; Start 01/11/17 at 10:00 Hydralazine HCl (Apresoline) 10 mg Q4H PRN IV sbp>160 Last administered on 01/12 21:37; Admin Dose 10 MG; Start 01/11/17 at 10:00 Tamsulosin HCl (Flomax) 0.4 mg HS PO Last administered on 01/12/17 21:29; Admin Dose 0.4 MG; Start 01/11/17 at 21:00 Ferrous Sulfate (Ferrous Sulfate (Ec)) 325 mg BID PO Last administered on 21:29; Admin Dose 325 MG; Start 01/11/17 at 21:00 Ascorbic Acid (Vitamin C) 500 mg BID PO Last administered on 01/12/17 21:29; Admin Dose 500 MG; Start 01/11/17 at 21:00 Insulin Glargine (Lantus) 32 unit AM SC Last administered on 01/12/17 08:46; Admin Dose 32 UNIT; Start 01/12/17 at 09:00 Acetaminophen/ Hydrocodone Bitart 1 tab 1 tab Q4H PRN PO pain 4-10; Start 01/12 at 11:30 Levofloxacin/ Dextrose (Levaquin 250 Mg/ D5W 50 ml (Pmx)) 50 ml @ 100 mls/hr Q48H IVPB ; Start 01/14/17 at 15:30 Assessment/Plan Chief Complaint/Hosp Course 71-year-old male who is known to [facility] for many years, has prostate cancer, and has been on Lupron Depot injections presented to the hospital with difficulty breathing and generalized body ache. CT scan did show bilateral hydronephrosis and urinary retention. Romero catheter has been inserted and it is draining well. His renal function did not improve much even with the Romero catheter in. We will keep the Romero catheter in place and monitor his renal function and nephrology is following him for his renal failure as well. He is anemic. The PSA is 2.9 and the bone scan did not show any skeletal metastasis Problems: AIDE BRIGHT MD Jan 13, 2017 08:39
[2017-01-13] MEDS: INSULIN GLARGINE [LANtus] 3 ML PEN SC SCH (08:45)
[2017-01-13 09:39] LABS: ANISOCYTOSIS 1+ (0-0); EOSINOPHILS % (M) 3 % (0-7); GIANT THROMBO% (M) 3 % (0-0); MONOCYTES % (M) 4 % (0-11); OVALOCYTES 1+ (0-0); PLATELET ESTIMATE NORMAL; POIKILOCYTOSIS 1+ (0-0); POLYCHROMASIA 3+ (0-0)
[2017-01-13 11:49] VITALS: BP 122/60; PULSE 80; RESP 18
[2017-01-13] MEDS ORDERED: MAGNESIUM SULFATE 1 GM/D5W 100 ML IVPB ONE (12:00)
[2017-01-13 13:00] VITALS: BP 121/63; RESP 18
--- NOTE | 2017-01-13 14:42 | PN ---
Date/Time of Note Date/Time of Note DATE: 01/13/17 TIME: 14:37 Assessment/Plan VTE Prophylaxis VTE Prophylaxis Intervention: SCD's Lines/Catheters IV Catheter Type (from Nrs): [place] [employer] line still needed: No Urinary Cath still in place: Yes Reason Cath still needed: urinary retention Assessment/Plan Chief Complaint/Hosp Course s: 12.4 patient has minimal sob 12.5 no sob, has jordan in, draining well, no acute complaints 12.6 no acute complaints o: Physical exam General: Patient is laying in bed and answers questions appropriately Mentation: Patient is alert and oriented 4, Head: Normocephalic atraumatic Eyes: EOMI, pupils reactive to light Neck: Supple, nontender, midline Respiratory: coarse to auscultation bilaterally Cardiovascular: regular rate, no obvious murmurs Gastrointestinal: non-tender to palpation, bowel sounds heard. Neurological: Moves all extremities spontaneously Skin: No new skin lesions Assessment/Plan Left upper lobe pneumonia - patient experiencing generalized body aches and fevers - PO abx - in no acute respiratory distress - PRN nebs KARLOS on CKD - patient has known CKD but baseline unknown - CT showing hydronephrosis, contacted Dr. Lim, urology, monitoring for now with jordan - KARLOS on CKD, contacted Dr. Benitez, nephrology -appears to be unchanged despite jordan, possible chronic issues, will appreciated nephrology recs for elevated Cr Anemia, most likely secondary to CKD and chronic disease - will check iron studies, appears low - will start iron with vit c -fobt negative Diabetes Mellitus - A1c ordered - insulin home dose continued - ISS and accuchecks hypocalcemia - on replacement as needed CAD -patient was not on aspirin, granted patient had stent in 2015, [place], will restart asa and plavix dispo -abx for PNA -f/u with nephrology regarding Cr before dispo Problems: Exam/Review of Systems Vital Signs Vitals Vital Signs Date Time Temp Pulse Resp B/P Pulse Ox O2 Delivery O2 Flow Rate FiO2 01/13/17 13:00 97.8 83 18 121/63 97 01/13/17 11:49 Room Air 01/13/17 07:38 21 01/10/17 14:38 2.0 Intake and Output 01/12/17 01/12/17 01/13/17 15:00 23:00 07:00 Intake Total 1900 ml 900 ml Output Total 1000 ml 2200 ml Balance 900 ml -1300 ml Results Result Diagram: 01/13/17 0601 01/13/17 0601 Results 24 hrs Laboratory Tests Test 01/12/17 17:14 01/12/17 21:28 01/13/17 06:01 01/13/17 08:06 Bedside Glucose 88 139 108 White Blood Count 2.3 #L Red Blood Count 2.39 L Hemoglobin 7.9 L Hematocrit 23.8 L Mean Corpuscular Volume 99.6 Mean Corpuscular Hemoglobin 33.1 H Mean Corpuscular Hemoglobin Concent 33.2 Red Cell Distribution Width 17.7 H Platelet Count 284 Mean Platelet Volume 10.8 H Neutrophils % Segmented Neutrophils % (Manual) 76 Band Neutrophils % (Manual) 8 H Lymphocytes % Lymphocytes % (Manual) 10 L Monocytes % Monocytes % (Manual) 4 Eosinophils % Eosinophils % (Manual) 3 Basophils % Nucleated Red Blood Cells % 0.0 Neutrophils # Neutrophils # (Manual) 1.8 Band Neutrophils # 0.1 Absolute Lymphocytes (Manual) 0.2 L Lymphocytes # Monocytes # Absolute Monocytes (Manual) 0.0 L Eosinophils # Basophils # Nucleated Red Blood Cells # Platelet Estimate NORMAL Giant Platelets 3 H Polychromasia 3+ Poikilocytosis 1+ Anisocytosis 1+ Ovalocytes 1+ Sodium Level 138 Potassium Level 4.2 Chloride Level 110 Carbon Dioxide Level 18 L Anion Gap 14 Blood Urea Nitrogen 37 H Creatinine 4.37 H Glucose Level 91 Calcium Level 7.6 L Phosphorus Level 5.3 H Magnesium Level 1.6 L Albumin 2.8 L Test 01/13/17 11:47 Bedside Glucose 134 Medications Medications Current Medications Amlodipine Besylate (Norvasc) 5 mg DAILY PO Last administered on 01/13/17 08: 37; Admin Dose 5 MG; Start 01/11/17 at 09:00 Atenolol (Tenormin) 50 mg DAILY PO Last administered on 01/13/17 08:36; Admin Dose 50 MG; Start 01/11/17 at 09:00 Atorvastatin Calcium (Lipitor) 40 mg QHS PO Last administered on 01/12/17 21: 29; Admin Dose 40 MG; Start 01/10/17 at 21:00 Benazepril HCl (Lotensin) 20 mg DAILY PO Last administered on 01/11/17 08:34; Admin Dose 20 MG; Start 01/11/17 at 09:00; Status Future Hold Clopidogrel Bisulfate (plaVIX) 75 mg DAILY PO Last administered on 01/13/17 08 :36; Admin Dose 75 MG; Start 01/11/17 at 09:00 Multivit/Ca Carb/ B Cmplx/FA/Prenat (Paulina-Heber) 1 tab DAILY PO Last administered on 01/13/17 08:36; Admin Dose 1 TAB; Start 01/11/17 at 09:00 Ranolazine (Ranexa) 1,000 mg Q12 PO Last administered on 01/13/17 08:36; Admin Dose 1,000 MG; Start 01/10/17 at 21:00 Ondansetron HCl (Zofran Inj) 4 mg Q6H PRN IV NAUSEA AND/OR VOMITING; Start 01/10/17 at 17:00 Acetaminophen (Tylenol Tab) 650 mg Q6H PRN PO PAIN LEVEL 1-3 OR FEVER Last administered on 01/11/17 02:42; Admin Dose 650 MG; Start 01/10/17 at 17:00 Pantoprazole (Protonix Tab) 40 mg DAILY@06 PO Last administered on 01/13/17 05 :34; Admin Dose 40 MG; Start 01/11/17 at 06:00 Miscellaneous Information 1 ea NOTE XX ; Start 01/10/17 at 17:30 Glucose (Glutose) 15 gm Q15M PRN PO DECREASED GLUCOSE; Start 01/10/17 at 17:30 Glucose (Glutose) 22.5 gm Q15M PRN PO DECREASED GLUCOSE; Start 01/10/17 at 17: 30 Dextrose (D50w Syringe) 25 ml Q15M PRN IV DECREASED GLUCOSE; Start 01/10/17 at 17:30 Dextrose (D50w Syringe) 50 ml Q15M PRN IV DECREASED GLUCOSE; Start 01/10/17 at 17:30 Glucagon (Glucagen) 1 mg Q15M PRN IM DECREASED GLUCOSE; Start 01/10/17 at 17:30 Glucose (Glutose) 15 gm Q15M PRN BUCCAL DECREASED GLUCOSE; Start 01/10/17 at 17 :30 Diagnostic Test (Pha) (Accu-Chek) 1 ea 02 XX ; Start 01/11/17 at 02:00 Aspirin (Aspirin) 81 mg DAILY PO Last administered on 01/13/17 08:36; Admin Dose 81 MG; Start 01/11/17 at 10:00 Hydralazine HCl (Apresoline) 10 mg Q4H PRN IV sbp>160 Last administered on 01/12 21:37; Admin Dose 10 MG; Start 01/11/17 at 10:00 Tamsulosin HCl (Flomax) 0.4 mg HS PO Last administered on 01/12/17 21:29; Admin Dose 0.4 MG; Start 01/11/17 at 21:00 Ferrous Sulfate (Ferrous Sulfate (Ec)) 325 mg BID PO Last administered on 08:36; Admin Dose 325 MG; Start 01/11/17 at 21:00 Ascorbic Acid (Vitamin C) 500 mg BID PO Last administered on 01/13/17 08:36; Admin Dose 500 MG; Start 01/11/17 at 21:00 Insulin Glargine (Lantus) 32 unit AM SC Last administered on 01/13/17 08:45; Admin Dose 32 UNIT; Start 01/12/17 at 09:00 Acetaminophen/ Hydrocodone Bitart 1 tab 1 tab Q4H PRN PO pain 4-10; Start 01/12 at 11:30 Levofloxacin/ Dextrose (Levaquin 250 Mg/ D5W 50 ml (Pmx)) 50 ml @ 100 mls/hr Q48H IVPB ; Start 01/14/17 at 15:30 BART WILSON Jan 13, 2017 14:42
--- NOTE | 2017-01-13 15:06 | CONS ---
Date/Time of Note Date/Time of Note DATE: 01/13/17 TIME: 15:05 Assessment/Plan Assessment/Plan Additional Assessment/Plan 71 yo male with 1) KRALOS Vs KARLOS on CKD Non Oliguric, CT scan shows Hydronephrosis, S/p Jordan catheter 2) Anemia, S/p PRBC, BP stable, Iron Deficiency 3) Metabolic acidosis in the setting KARLOS 4) LLL PNA 5) Sepsis 6) DM with Likely DM CKD Cont jordan catheter Seen by Urology Avoid nephrtoxic Rx INO-I Held, BP controlled Renal Diet Epogen SC x 1 Consultation Date/Type/Reason Admit Date/Time Jan 10, 2017 at 16:17 Type of Consultation: Renal Referring Provider: BART WILSON 24 HR Interval Summary Free Text/Dictation No new complaints Constitutional: No requiring O2 Exam/Review of Systems Vital Signs Vitals Vital Signs Date Time Temp Pulse Resp B/P Pulse Ox O2 Delivery O2 Flow Rate FiO2 01/13/17 13:00 97.8 83 18 121/63 97 01/13/17 11:49 Room Air 01/13/17 07:38 21 01/10/17 14:38 2.0 Intake and Output 01/12/17 01/12/17 01/13/17 15:00 23:00 07:00 Intake Total 1900 ml 900 ml Output Total 1000 ml 2200 ml Balance 900 ml -1300 ml Exam Constitutional: alert, No distress ENMT: mucosa pink and moist Neck: non-tender, No jvd Respiratory: clear to auscultation, No crackles/rales Cardiovascular: regular rate and rhythm, No edema Gastrointestinal: non-tender, soft Extremities: No edema Neurological: nl mental status, No lethargic Results Result Diagram: 01/13/17 0601 01/13/17 06 Results 24 hrs Laboratory Tests Test 01/12/17 17:14 01/12/17 21:28 01/13/17 06:01 01/13/17 08:06 Bedside Glucose 88 139 108 White Blood Count 2.3 #L Red Blood Count 2.39 L Hemoglobin 7.9 L Hematocrit 23.8 L Mean Corpuscular Volume 99.6 Mean Corpuscular Hemoglobin 33.1 H Mean Corpuscular Hemoglobin Concent 33.2 Red Cell Distribution Width 17.7 H Platelet Count 284 Mean Platelet Volume 10.8 H Neutrophils % Segmented Neutrophils % (Manual) 76 Band Neutrophils % (Manual) 8 H Lymphocytes % Lymphocytes % (Manual) 10 L Monocytes % Monocytes % (Manual) 4 Eosinophils % Eosinophils % (Manual) 3 Basophils % Nucleated Red Blood Cells % 0.0 Neutrophils # Neutrophils # (Manual) 1.8 Band Neutrophils # 0.1 Absolute Lymphocytes (Manual) 0.2 L Lymphocytes # Monocytes # Absolute Monocytes (Manual) 0.0 L Eosinophils # Basophils # Nucleated Red Blood Cells # Platelet Estimate NORMAL Giant Platelets 3 H Polychromasia 3+ Poikilocytosis 1+ Anisocytosis 1+ Ovalocytes 1+ Sodium Level 138 Potassium Level 4.2 Chloride Level 110 Carbon Dioxide Level 18 L Anion Gap 14 Blood Urea Nitrogen 37 H Creatinine 4.37 H Glucose Level 91 Calcium Level 7.6 L Phosphorus Level 5.3 H Magnesium Level 1.6 L Albumin 2.8 L Test 01/13/17 11:47 Bedside Glucose 134 Medications Medications Current Medications Amlodipine Besylate (Norvasc) 5 mg DAILY PO Last administered on 01/13/17 08: 37; Admin Dose 5 MG; Start 01/11/17 at 09:00 Atenolol (Tenormin) 50 mg DAILY PO Last administered on 01/13/17 08:36; Admin Dose 50 MG; Start 01/11/17 at 09:00 Atorvastatin Calcium (Lipitor) 40 mg QHS PO Last administered on 01/12/17 21: 29; Admin Dose 40 MG; Start 01/10/17 at 21:00 Benazepril HCl (Lotensin) 20 mg DAILY PO Last administered on 01/11/17 08:34; Admin Dose 20 MG; Start 01/11/17 at 09:00; Status Future Hold Clopidogrel Bisulfate (plaVIX) 75 mg DAILY PO Last administered on 01/13/17 08 :36; Admin Dose 75 MG; Start 01/11/17 at 09:00 Multivit/Ca Carb/ B Cmplx/FA/Prenat (Paulina-Heber) 1 tab DAILY PO Last administered on 01/13/17 08:36; Admin Dose 1 TAB; Start 01/11/17 at 09:00 Ranolazine (Ranexa) 1,000 mg Q12 PO Last administered on 01/13/17 08:36; Admin Dose 1,000 MG; Start 01/10/17 at 21:00 Ondansetron HCl (Zofran Inj) 4 mg Q6H PRN IV NAUSEA AND/OR VOMITING; Start 01/10/17 at 17:00 Acetaminophen (Tylenol Tab) 650 mg Q6H PRN PO PAIN LEVEL 1-3 OR FEVER Last administered on 01/11/17 02:42; Admin Dose 650 MG; Start 01/10/17 at 17:00 Pantoprazole (Protonix Tab) 40 mg DAILY@06 PO Last administered on 01/13/17 05 :34; Admin Dose 40 MG; Start 01/11/17 at 06:00 Miscellaneous Information 1 ea NOTE XX ; Start 01/10/17 at 17:30 Glucose (Glutose) 15 gm Q15M PRN PO DECREASED GLUCOSE; Start 01/10/17 at 17:30 Glucose (Glutose) 22.5 gm Q15M PRN PO DECREASED GLUCOSE; Start 01/10/17 at 17: 30 Dextrose (D50w Syringe) 25 ml Q15M PRN IV DECREASED GLUCOSE; Start 01/10/17 at 17:30 Dextrose (D50w Syringe) 50 ml Q15M PRN IV DECREASED GLUCOSE; Start 01/10/17 at 17:30 Glucagon (Glucagen) 1 mg Q15M PRN IM DECREASED GLUCOSE; Start 01/10/17 at 17:30 Glucose (Glutose) 15 gm Q15M PRN BUCCAL DECREASED GLUCOSE; Start 01/10/17 at 17 :30 Diagnostic Test (Pha) (Accu-Chek) 1 ea 02 XX ; Start 01/11/17 at 02:00 Aspirin (Aspirin) 81 mg DAILY PO Last administered on 01/13/17 08:36; Admin Dose 81 MG; Start 01/11/17 at 10:00 Hydralazine HCl (Apresoline) 10 mg Q4H PRN IV sbp>160 Last administered on 01/12 21:37; Admin Dose 10 MG; Start 01/11/17 at 10:00 Tamsulosin HCl (Flomax) 0.4 mg HS PO Last administered on 01/12/17 21:29; Admin Dose 0.4 MG; Start 01/11/17 at 21:00 Ferrous Sulfate (Ferrous Sulfate (Ec)) 325 mg BID PO Last administered on 08:36; Admin Dose 325 MG; Start 01/11/17 at 21:00 Ascorbic Acid (Vitamin C) 500 mg BID PO Last administered on 01/13/17 08:36; Admin Dose 500 MG; Start 01/11/17 at 21:00 Insulin Glargine (Lantus) 32 unit AM SC Last administered on 01/13/17 08:45; Admin Dose 32 UNIT; Start 01/12/17 at 09:00 Acetaminophen/ Hydrocodone Bitart 1 tab 1 tab Q4H PRN PO pain 4-10; Start 01/12 at 11:30 Levofloxacin/ Dextrose (Levaquin 250 Mg/ D5W 50 ml (Pmx)) 50 ml @ 100 mls/hr Q48H IVPB ; Start 01/14/17 at 15:30 AMANDA FERREIRA MD Jan 13, 2017 15:06
[2017-01-13] MEDS ORDERED: EPOETIN 4000 UNITS/ML (NON ESRD/NON ONCOLOGY) SC ONE (16:30)
[2017-01-13 20:00] VITALS: BP 153/64; RESP 18
[2017-01-13] MEDS: ATORVASTATIN 40 MG TAB PO SCH (20:40)
[2017-01-13] MEDS: TAMSULOSIN (SR) 0.4 MG CAP PO SCH (20:40)
[2017-01-14] MEDS: ALBUTEROL/IPRATROPIUM (NEB) 3 ML AMP HHN SCH ×2 (01:24→09:11)
[2017-01-14 02:00] VITALS: BP 120/60; RESP 16
[2017-01-14] MEDS: ACCU-CHEK XX SCH (02:00)
[2017-01-14] MEDS: PANTOPRAZOLE (EC) 40 MG TAB PO SCH (05:38)
[2017-01-14 05:51] LABS: ABNORMAL IP MESSAGE 1; HEMATOCRIT 24.5 % (42.0-52.0); HEMOGLOBIN 7.9 g/dl (14.0-18.0); MEAN CORPUSCULAR HEMOGLOBIN 32.4 pg (29.0-33.0); MEAN CORPUSCULAR HGB CONC 32.2 g/dl (32.0-37.0); MEAN CORPUSCULAR VOLUME 100.4 fl (82.0-101.0); MEAN PLATELET VOLUME 10.8 fl (7.4-10.4); PLATELET COUNT 306 10^3/UL (140-415); POSITIVE DIFF @See below; RED BLOOD COUNT 2.44 10^6/ul (4.70-6.10); RED CELL DISTRIBUTION WIDTH 17.5 % (11.5-14.5); WHITE BLOOD COUNT 2.4 10^3/ul (4.8-10.8)
[2017-01-14 06:24] LABS: CALCIUM 8.2 mg/dl (8.4-10.2); CREATININE 4.57 mg/dl (0.61-1.24); MAGNESIUM 1.9 mg/dl (1.7-2.5); PHOSPHORUS 5.9 mg/dl (2.5-4.9); POTASSIUM 4.6 mmol/L (3.5-5.1)
[2017-01-14 07:45] VITALS: BP 136/72; RESP 20
[2017-01-14] MEDS: INSULIN ASPART [NOVOLOG] 3 ML PEN SC SCH ×2 (08:15→12:22)
[2017-01-14] MEDS: CALCIUM ACETATE 667 MG CAP PO SCH ×2 (08:27→12:25)
[2017-01-14] MEDS: FERROUS SULFATE (EC) 325 MG TAB PO SCH (08:28)
[2017-01-14] MEDS: ASPIRIN 81 MG TAB PO SCH (08:28)
[2017-01-14] MEDS: AMLODIPINE 5 MG TAB PO SCH (08:29)
[2017-01-14] MEDS: CLOPIDOGREL 75 MG TAB PO SCH (08:32)
[2017-01-14] MEDS: MULTIVIT/CA CARB/B CMPLX/FA TAB PO SCH (08:32)
[2017-01-14] MEDS: RANOLAZINE (SR) 500 MG TAB PO SCH (08:32)
[2017-01-14] MEDS: ATENOLOL 50 MG TAB PO SCH (08:34)
[2017-01-14] MEDS: ASCORBIC ACID 500 MG TAB PO SCH (08:34)
[2017-01-14] MEDS: INSULIN GLARGINE [LANtus] 3 ML PEN SC SCH (08:39)
--- NOTE | 2017-01-14 10:26 | PDOCDIS ---
Discharge Instructions CONDITION Patient Condition: Stable HOME CARE INSTRUCTIONS: Special Diet: carb controlled FOLLOW UP/APPOINTMENTS Follow-up Plan 1. Follow up with nephrology, Dr. Michel Leonard, within 1 week 2. Follow up with urology, Dr. Enrrique Lim, within 1 week for jordan catheter care 3. Please take one more dose of antibiotic, levaquin, on 01/16/17 with lunch BART WILSON Jan 14, 2017 10:26
[2017-01-14] MEDS ORDERED: FER325 PO (10:29)
[2017-01-14] MEDS ORDERED: ASC500 PO (10:29)
[2017-01-14] MEDS ORDERED: LEVO250T9 PO (10:29)
[2017-01-14] MEDS ORDERED: TAMS-14 PO (10:29)
[2017-01-14] MEDS ORDERED: ASPI81TA3 PO (10:29)
[2017-01-14 12:09] LABS: ANISOCYTOSIS 1+ (0-0); BASOPHILS % (M) 4 % (0-2); EOSINOPHILS % (M) 5 % (0-7); GIANT THROMBO% (M) 1 % (0-0); MICROCYTOSIS 1+ (0-0); MONOCYTES % (M) 5 % (0-11); OVALOCYTES 1+ (0-0); PLATELET ESTIMATE NORMAL; POIKILOCYTOSIS 2+ (0-0); PROMYELOCYTES % (M) 1 % (0-0)
--- NOTE | 2017-01-14 13:38 | DS ---
Date/Time of Note Date/Time of Note DATE: 01/14/17 TIME: 13:38 Discharge Summary Admission/Discharge Info Admit Date/Time Jan 10, 2017 at 16:17 Discharge Date/Time Patient Condition: Stable Hospital Course Patient is a 71-year-old male who presented to [facility] for shortness of breath. Patient was found to have a left upper lobe pneumonia and was treated appropriately with antibiotics. Constantly patient also had an anion deficiency anemia as well as incidental findings of hydro- nephrosis on CT. Patient was seen by urology as well as nephrology and patient' s creatinine level was monitored. Patient's urologist suggested that patient leave with Jordan catheter intact as patient has a history of prostate cancer with the hopes of improving renal function. Patient's renal function is poor however stable and not in need of acute dialysis per nephrology and patient has an appointment with nephrology within [address]. Patient is to follow-up with urology and nephrology for ongoing renal issues and patient be discharged with Jordan leg bag per urology recommendations. Patient will also be discharged with appropriate antibiotic of 1 more dose every 48 hours for a total duration of 7 days for his community acquired pneumonia. Patient also was told explicitly to stop benazepril due to his acute kidney injury and to continue taking baby aspirin along with his Plavix. Patient will also be discharged with iron. Discharge diagnoses Pneumonia Acute kidney injury on chronic kidney disease Anemia, iron deficiency Diabetes mellitus Electronic derangement Coronary artery disease, status post stent Home Meds Active Scripts Levofloxacin* (Levofloxacin*) 250 Mg Tablet, 250 MG PO ONCE, #1 TAB Prov:BART WILSON 01/14/17 Ascorbic Acid (Vitamin C) 500 Mg Tab, 500 MG PO BID for 30 Days, #60 TAB Prov:BART WILSON 01/14/17 Aspirin (Aspirin) 81 Mg Chew, 81 MG PO DAILY for 30 Days, #30 TAB Prov:BART WILSON 01/14/17 Ferrous Sulfate* (Ferrous Sulfate*) 325 Mg Tabec, 325 MG PO BID for 30 Days, # 60 TAB Prov:BART WILSON 01/14/17 Tamsulosin Hcl* (Flomax*) 0.4 Mg Cap.er.24h, 0.4 MG PO HS for 30 Days, #30 CAP Prov:BART WILSON 01/14/17 Reported Medications Glipizide* (Glipizide*) Unknown Strength Tablet, PO AC BREAKFAST, TAB 01/10/17 Insulin Glargine* (Lantus*) 100 Unit/Ml Soln, 32 UNIT SC QHS, #1 VIAL 01/10/17 Amlodipine Besylate* (Norvasc*) 5 Mg Tablet, 5 MG PO DAILY, TAB 01/10/17 Atenolol* (Atenolol*) 50 Mg Tablet, 50 MG PO DAILY, #30 TAB 01/10/17 Atorvastatin* (Atorvastatin*) 40 Mg Tablet, 40 MG PO QHS, #30 TAB 01/10/17 Multivitamins* (Theragran*) 1 Tab Tab, 1 TAB PO DAILY, TAB 01/10/17 Multivit/Ca Carb/B Cmplx/Fa* (Paulina-Heber*) 1 Tab Tab, 1 TAB PO DAILY, TAB 01/10/17 Ranolazine* (Ranexa*) 1,000 Mg Tab.sr.12h, 1000 MG PO Q12, TAB 01/10/17 Clopidogrel Bisulfate (Clopidogrel) 75 Mg Tablet, 75 MG PO DAILY, #30 TAB 01/10/17 Discontinued Reported Medications Benazepril Hcl* (Benazepril Hcl*) 20 Mg Tablet, 20 MG PO DAILY, #30 TAB 01/10/17 Cholecalciferol* (Vitamin D3*) 1,000 Unit Tablet, 1000 UNIT PO DAILY, TAB 02/14/15 Insulin Lispro (Humalog) 100 U/Ml Cartridge, 0 SC SLIDING SCALE AC, EA 02/14/15 Amlodipine Besylate* (Norvasc*) 5 Mg Tablet, 5 MG PO DAILY, TAB 02/14/15 Benazepril Hcl* (Benazepril Hcl*) 5 Mg Tablet, 5 MG PO DAILY, TAB 10/05/14 Doxazosin Mesylate* (Doxazosin Mesylate*) 2 Mg Tablet, 2 MG PO HS, TAB HOLD RX PER 10/05/14 Atenolol* (Atenolol*) 50 Mg Tablet, 50 MG PO DAILY 11/30/11 Montelukast Sodium* (Singulair*) 10 Mg Tablet, 10 MG PO DAILY 11/30/11 Discontinued Scripts Oseltamivir Phosphate* (Tamiflu*) 75 Mg Capsule, 75 MG PO BID for 5 Days, CAP Prov:TEEHEE,ALMAZ N. MD 05/22/16 Acetaminophen* (Tylophen*) 500 Mg Capsule, 1 CAP PO Q6H Y for PAIN AND OR ELEVATED TEMP, #20 CAP Prov:ALMAZ CUEVA MD 05/22/16 Acetaminophen* (Tylophen*) 500 Mg Capsule, 1 CAP PO Q6H Y for PAIN AND OR ELEVATED TEMP, #16 CAP Prov:ALMAZ CUEVA MD 06/07/15 Diphenhydramine Hcl* (Benadryl*) 25 Mg Cap, 25 MG PO Q6, #14 CAP Prov:ALMAZ CUEVA MD 06/07/15 Clopidogrel Bisulfate (Clopidogrel) 75 Mg Tab, 75 MG PO DAILY for 30 Days, TAB 3 Refills Prov:ROBERTO THORNE MD 02/16/15 Atorvastatin Calcium* (Atorvastatin Calcium*) 20 Mg Tab, 80 MG PO DAILY@21 for 30 Days, TAB Prov:ROBERTO THORNE MD 02/16/15 Aspirin* (Aspirin* EC) 81 Mg Tablet., 81 MG PO DAILY for 30 Days, 3 Refills Prov:ROBERTO THORNE MD 02/16/15 Follow-up Plan 1. Follow up with nephrology, Dr. Michel Leonard, within 1 week 2. Follow up with urology, Dr. Enrrique Lim, within 1 week for jordan catheter care 3. Please take one more dose of antibiotic, levaquin, on 01/16/17 with lunch Primary Care Provider Alejandra Lemus MD Pending Labs Laboratory Tests Test 01/13/17 17:25 01/13/17 20:42 01/14/17 05:23 01/14/17 08:15 Bedside Glucose 114mg/dL (70-220) 175mg/dL (70-220) 90mg/dL (70-220) White Blood Count 2.410^3/ul (4.8-10.8) Red Blood Count 2.4410^6/ul (4.70-6.10) Hemoglobin 7.9g/dl (14.0-18.0) Hematocrit 24.5% (42.0-52.0) Mean Corpuscular Volume 100.4fl (82.0-101.0) Mean Corpuscular Hemoglobin 32.4pg (29.0-33.0) Mean Corpuscular Hemoglobin Concent 32.2g/dl (32.0-37.0) Red Cell Distribution Width 17.5% (11.5-14.5) Platelet Count 33619^3/UL (140-415) Mean Platelet Volume 10.8fl (7.4-10.4) Neutrophils % % (39.0-77.0) Segmented Neutrophils % (Manual) 50% (39-77) Band Neutrophils % (Manual) 11% (0-4) Lymphocytes % % (15.0-51.0) Lymphocytes % (Manual) 24% (15-51) Monocytes % % (0.0-11.0) Monocytes % (Manual) 5% (0-11) Eosinophils % % (0.0-7.0) Eosinophils % (Manual) 5% (0-7) Basophils % % (0.0-2.0) Basophils % (Manual) 4% (0-2) Promyelocytes % (Manual) 1% (0-0) Nucleated Red Blood Cells % 0.0/100WBC (0.0-0.0) Neutrophils # 10^3/ul (1.6-7.5) Neutrophils # (Manual) 1.210^3/ul (1.7-7.5) Band Neutrophils # 0.210^3/ul (0.0-0.6) Absolute Lymphocytes (Manual) 0.510^3/ul (0.8-2.9) Lymphocytes # 10^3/ul (0.8-2.9) Monocytes # 10^3/ul (0.3-0.9) Absolute Monocytes (Manual) 0.110^3/ul (0.3-0.9) Eosinophils # 10^3/ul (0.0-0.5) Basophils # 10^3/ul (0.0-0.1) Basophils # (Manual) 0.010^3/ul (0.0-0.0) Promyelocytes # 0.010^3/ul (0-0) Nucleated Red Blood Cells # 10^3/ul (0.0-0.0) Platelet Estimate NORMAL Giant Platelets 1% (0-0) Poikilocytosis 2+ (0-0) Anisocytosis 1+ (0-0) Microcytosis 1+ (0-0) Ovalocytes 1+ (0-0) Sodium Level 139mmol/L (135-144) Potassium Level 4.6mmol/L (3.5-5.1) Chloride Level 109mmol/L (97-110) Carbon Dioxide Level 18mmol/L (21-31) Anion Gap 17 (8-16) Blood Urea Nitrogen 45mg/dl (7-20) Creatinine 4.57mg/dl (0.61-1.24) Glucose Level 80mg/dl (70-220) Calcium Level 8.2mg/dl (8.4-10.2) Phosphorus Level 5.9mg/dl (2.5-4.9) Magnesium Level 1.9mg/dl (1.7-2.5) Test 01/14/17 12:15 Bedside Glucose 184mg/dL (70-220) BART WILSON Jan 14, 2017 13:38
[2017-01-14] MEDS ORDERED: LEVOFLOXACIN 250MG/D5W (PMX) 50 ML IVPB SCH (15:30)
== END 2017-01-14 13:30 | disposition home or self-care (01) | DRG 871 ==
LOC: E/R 12:30 → MS2 16:17
PROVIDERS: ADMIT Internal Medicine; ATTEND Internal Medicine
PROC: 30233N1 Transfusion of Nonautologous Red Blood Cells into Peripheral Vein, Percutaneous Approach (ICD-10-PCS; principal; 2017-01-11)
DX: A41.9 Sepsis, unspecified organism (principal); J18.9 Pneumonia, unspecified organism; N17.9 Acute kidney failure, unspecified; E87.2 Acidosis; N13.30 Unspecified hydronephrosis; E11.22 Type 2 diabetes mellitus with diabetic chronic kidney disease; D63.8 Anemia in other chronic diseases classified elsewhere; I25.10 Atherosclerotic heart disease of native coronary artery without angina pectoris; I12.9 Hypertensive chronic kidney disease with stage 1 through stage 4 chronic kidney disease, or unspecified chronic kidney disease; N18.9 Chronic kidney disease, unspecified; E83.51 Hypocalcemia; R33.9 Retention of urine, unspecified; Z95.5 Presence of coronary angioplasty implant and graft; Z85.46 Personal history of malignant neoplasm of prostate
CPT/HCPCS: 36415; 36430; 71010; 74176; 78306; 80048; 80053; 80069; 81001; 82270; 82728; 82962; 83036; 83540; 83605; 83735; 83970; 84100; 84153; 84154; 84155; 84300; 84484; 85014; 85018; 85025; 85610; 85730; 86850; 86900; 86901; 86920; 87040; 87075; 87086; 90686; 93005; 94640; 94664; 96374; 96375; 97110; 97116; 97161; 97165; A9503; J0360; J0456; J0692; J0696; J0885; J1815; J1956; J3370; J3475; J7030; P9016

== ENCOUNTER 2017-03-29 13:08 | Inpatient (IN) | END 2017-03-31 15:45 | disposition home or self-care (01) | DRG 872 ==

== ENCOUNTER 2017-04-01 07:15 | Day surgery (SDC) | END 2017-04-01 10:01 | disposition home or self-care (01) ==

== ENCOUNTER 2017-05-29 11:50 | Emergency (ER) | END 2017-05-29 12:36 | disposition left against medical advice (07) ==

== ENCOUNTER 2017-05-29 23:10 | Inpatient (IN) | END 2017-06-05 14:15 | disposition EXP | DRG 871 ==